=== PATIENT | male | born 1955 | race Caucasian/White ===

== ENCOUNTER 2018-05-25 06:53 | Inpatient (IN) ==
[~2018-05-25 06:53] MED LIST: Dextrose 50 % in Water (Vial) 30 ML, Sodium Bicarbonate 20 MEQ, Lidocaine 1% 5 ML, Insu... TH ONE; Dextrose 50 % in Water (Vial) 30 ML, Sodium Bicarbonate 20 MEQ, Potassium Chloride 15 M... TH ONE; Heparin 15,000 UNIT in 0.9 % Sodium Chloride 500 ML IV ONE; Insulin Human Regular 100 UNIT in 0.9 % Sodium Chloride 100 ML IV PRN; Norepinephrine 4 MG in D5% in Water 250 ML IVC PRN
[2018-05-25] MEDS ORDERED: *HR* Midazolam HCl 5 MG/5 ML VIAL IVP ONE (06:55)
[2018-05-25] MEDS ORDERED: *HR* FentaNYL (PF) 1,000 MCG/20 ML VIAL ONE (06:56)
[2018-05-25] MEDS ORDERED: *HR* Propofol 200 MG/20 ML VIAL IVP ONE (06:56)
[2018-05-25] MEDS ORDERED: *HR* Magnesium Sulfate 1 GM/2 ML VIAL ONE (06:58)
[2018-05-25] MEDS ORDERED: *HR* Rocuronium Bromide 50 MG/5 ML VIAL ONE ×2 (06:58→10:02)
[2018-05-25] MEDS ORDERED: Aspirin 81 MG TAB.CHEW PO ONE (07:02)
[2018-05-25] MEDS ORDERED: CeFAZolin Syr 2,000MG/20 ML 2,000 MG/20 ML SYRINGE IVPB ONE (07:05)
[2018-05-25] MEDS ORDERED: Albuterol 2.5 MG/3 ML NEBULIZER IH ONE (07:05)
[2018-05-25] MEDS ORDERED: Nitroglycerin 25 MG/250 ML INFUS..BTL IVC ONE (07:11)
[2018-05-25] MEDS ORDERED: Ringers Solution, Lactated 1,000 ML IVC SCH (07:15)
--- NOTE | 2018-05-25 07:26 | Anesthesia Evaluation PreOp ---
Date of Encounter: 05/25/18 Time of Encounter: 07:24 - Past History Planned Operation: CABG Cardiac History: HTN, Hyperlipidemia, Cardiac Stent (x 2), Other (CAD) Pulmonary History: SHANEL Dx (CPAP 8) AUDIT MANAGER History: Other (depression, anxiety, cervical C5-6 herniated disk) Other Medical History: Diabetes Type II Anesthesia History: No Prior Anesthetic Complications, Past Anesthesia ( BIlateral knee replacements) Alcohol Use: rarely Drug use: none Medications and Allergies Aspirin 81 mg PO DAILY 10/06/17 [History] Atorvastatin [Lipitor] 40 mg PO HS 10/06/17 [History] Dapagliflozin Propanediol [Farxiga] 5 mg PO DAILY 10/06/17 [History] Dulaglutide [Trulicity] 1.5 mg IJ WE 10/06/17 [History] Gabapentin [Neurontin] 300 mg PO BID 10/06/17 [History] Gabapentin [Neurontin] 600 mg PO HS 10/06/17 [History] Insulin ASPART [NovoLOG] 18 - 20 unit SQ TID PRN 10/06/17 [History] Losartan/Hydrochlorothiazide [Losartan-Hctz 100-12.5 mg Tab] 1 tab PO DAILY [History] Metformin HCl [Glucophage] 1,000 mg PO BID 10/06/17 [History] Metoprolol XL (24 HR) Succ [Toprol Xl] 25 mg PO DAILY 10/06/17 [History] Albuterol Sulfate [Proair Hfa] 1 puff IH DAILY PRN 05/18/18 [History] Albuterol Sulfate [Ventolin Hfa] 18 gm IH DAILY PRN 05/18/18 [History] Fluticasone Propionate Nasal [Flonase] 50 mcg NS DAILY PRN 05/18/18 [History] Insulin Degludec [Tresiba Flextouch U-200] 200 unit SQ DAILY 05/18/18 [History] raNITIdine HCl [Zantac] 150 mg PO DAILY PRN 05/18/18 [History] 3 Allergy/AdvReac Type Severity Reaction Status Date / Time No Known Allergies Allergy Verified 05/25/18 07:38 - Meds/Allergy Pre-op Review Medications Reviewed: Yes Allergies Reviewed: Yes Beta Blockers on Current Med List: Yes (metoprolol ) If Beta Blockers taken, Date/Time (Last Dose taken): midnight Anesthesia Results - Labs Laboratory Tests 06/27/18 06/27/18 06/27/18 12:58 12:58 12:58 WBC 9.7 Hgb 13.0 Hct 40.7 Plt Count 261 PT 10.9 INR 1.0 APTT Sodium 138 Potassium 4.2 Chloride 104 Carbon Dioxide 28 BUN 20 Creatinine 1.06 Est GFR (Non-Af Amer) > 60 Hemoglobin A1c 05/18/18 05/18/18 14:55 14:55 WBC Hgb Hct Plt Count PT INR APTT 35.0 Sodium Potassium Chloride Carbon Dioxide BUN Creatinine Est GFR (Non-Af Amer) Hemoglobin A1c 8.1 H - Imaging EKG: report reviewed, image reviewed Additional studies: 05/2018 LEFT HEART CATH Indications: Abnormal Test - Stress Impressions: There is severe three vessel coronary artery disease. Instent restenosis in previously stented proximal LAD. The left ventricle is normal and has normal contractility EF 60% Recommendations: Optimal medical therapy of patient's disease. Aggressive risk factor modification. Evaluate for coronary artery bypass surgery. LV Ventriculography Ejection Method: LV Gram 60% Coronary Dominance: right Lesion Findings/Interventions * Left Main Coronary Artery The LMCA is angiographically free of disease. * Left Anterior Descending There is a 99% instent restenosis in the Proximal LAD. The lesion has no thrombus present. * Circumflex There is a 30% stenosis in the Proximal Circumflex. The lesion has no thrombus present. There is a 40% stenosis in the 1st Marginal. The lesion has no thrombus present. There is a 99% stenosis in the 2nd Marginal. * Right Coronary Artery There is a 30% stenosis in the Proximal RCA- calcified There is a 90% stenosis in the Mid RCA- calcified There is a 99% stenosis in the Distal RCA. Echo 10/2017 Impressions: Overall, normal LV systolic function, EF 55%. The endocardial border was not well visualized in all windows. Not all LV segments were seen. Recommend use of Definity for future studies. Mild left ventricular diastolic dysfunction. Normal filling pressures by E/e'. Normal right ventricular structure and function. No significant valvular dysfunction. No pulmonary hypertension by TR gradient, 19 mmHg. IVC is not well visualized. Left Ventricular Wall Motion: Rest Echo Findings The mid anterior septal, mid inferior lateral, basal anterior septal and basal inferior lateral mcdonald were not visualized. All other wall segments showed normal motion. Findings: Study Quality * Technically challenging windows due to body habitus. ECG Findings * Normal sinus rhythm. Left Ventricle * LVEF 55%. * Normal LV size. * Measurements for wall thickness were not well obtained. Visually, LV wall thickness appears normal. * Mild left ventricular diastolic dysfunction. Normal filling pressures by E/e'. Right Ventricle * Normal right ventricular structure and function. Left Atrium * Left atrium is not well visualized. Right Atrium * Right atrium is not well visualized. Aortic Valve * No aortic regurgitation. * Aortic valve not well visualized. * No aortic stenosis. Mitral Valve * No mitral regurgitation. * Mitral valve not well visualized. * No mitral stenosis. Tricuspid Valve * Tricuspid valve not well visualized. * Trace tricuspid regurgitation. Pulmonic Valve * Pulmonic valve is not well visualized. * No pulmonic stenosis. * No pulmonic regurgitation. Pulmonary Artery * Pulmonary artery not well visualized. Aorta * Not well visualized. Pericardium * There is no pericardial effusion present. Interatrial Septum * Interatrial septum not well evaluated. IVC * The IVC is not well evaluated. Cervical MRI 03/2018 IMPRESSION: 1. No substantial change since 08/03/2017. 2. Posterior disc protrusions at C5-6 cause moderate spinal canal stenosis and severe left and moderate right C6 neural foraminal narrowing. 3. Mild spinal canal stenosis at C3-4 and C6-7. Anesthesia Exam Vital Signs/O2 Sat/Glucose, Most Recent Temp Pulse Resp BP Pulse Ox 97.9 F 76 18 146/85 96 05/25/18 07:28 05/25/18 07:28 05/25/18 07:28 05/25/18 07:28 05/25/18 07:28 Blood Glucose* 71 Height: 1.83 Weight: 131 kg BMI 39.3 NPO (# of Hours): > 8 hours - HEENT Pupil (Motor): Pupils equal Mallampati: II Teeth: Normal Oral Opening: Greater than 3 - AUDIT MANAGER AUDIT MANAGER Motor: Normal RUE, Normal LUE, Normal RLE, Normal LLE, Normal Face AUDIT MANAGER Sensory: Normal: LUE, RLE, LLE, Face, Deficit: RUE (thumb numbness ) - Cardiac Rhythm: Regular Murmur: Systolic - Pulmonary Breath Sounds: bilateral Clear Respiratory Effort: Symmetrical Anesthesia Assess/Plan ASA Score: 4 Modified [place] Scale for Level of Consciousness: Cooperative, oriented, and tranquil Anesthetic Plan: General Monitoring Plan: Standard Monitors, A-Line, PAC, SUSY Recovery Plan: ICU Anes Supervising Prov Stmt: discussed patients hx of neck pain and tentitive neck surgery prior to finding the CAD. Plan for glidescope intubation. Discussed bayron PAC, SUSY insertion and ICU admission
--- NOTE | 2018-05-25 07:39 | History & Physical Report ---
Date of Encounter: 05/25/18 Time of Encounter: 07:30 24 Hour HP Update - Instructions Instructions: If the History and Physical is less than 30 days old and was completed prior to A.M. admission and or procedure and has NOT been updated on calendar day of procedure please complete this update prior to performing procedure. - Update Patient reports changes in Medical Condition: No Changes in examination, assessment, or condition: No Changes in Medication: No Preop tests/diagnostics Reviewed: Yes Surgery Remains Indicated: Yes Consent for Planned Operative Procedure(s) Verified: Yes - Pre-Operative Checklist Preoperative Checklist Indicated: No Prophylactic Antibiotic Ordered: Yes Home Medications Include Beta Zoey: Yes Beta Zoey Taken Today (Day of Surgery): Yes Beta Zoey Taken Yesterday (Day Prior to Surgery): Yes Is VTE Prophylaxis Indicated?: NO
[2018-05-25] MEDS ORDERED: Lidocaine 2% Syringe 100 MG/5 ML ONE (07:58)
[2018-05-25] MEDS: Chlorhexidine Rinse 15 ML MOUTHWASH MM SCH ×2 (08:04→20:08)
[2018-05-25 08:28] LABS: ABG Base Excess -1 mEq/L (-2 to 3); ABG Chloride 107 mEq/L (98-107); ABG Glucose 69 mg/dL (60-95); ABG HCO3 27 mEq/L (21-27); ABG Ionized Calcium 1.15 mmol/L (1.15-1.35); ABG Oxygen Saturation 84 % (95-98); ABG PCO2 58 mmHg (35-45); ABG PH 7.28 pH Units (7.32-7.45); ABG PO2 56 mmHg (85-104); ABG TCO2 29 mEq/L (20-26)
[2018-05-25] MEDS ORDERED: Dexamethasone 4 MG/ML VIAL ONE (08:59)
[2018-05-25] MEDS ORDERED: *HR* Magnesium Sulfate 2 GM/50 ML PIGGYBACK IVPB ONE (09:05)
[2018-05-25] MEDS ORDERED: Albumin Human 25% 25 GM/100 ML IV.SOLN IV ONE (09:05)
[2018-05-25] MEDS ORDERED: Lidocaine 2% Syringe 100 MG/5 ML IV ONE (09:05)
[2018-05-25] MEDS ORDERED: *HR* Phenylephrine 10 MG/ML VIAL IVC ONE (09:05)
[2018-05-25] MEDS ORDERED: Tranexamic Acid 1,000 MG/10 ML VIAL IVPB ONE (09:05)
[2018-05-25] MEDS ORDERED: Mannitol 25% vial 12.5 GM/50 ML VIAL IVP ONE (09:05)
[2018-05-25] MEDS ORDERED: *HR* Heparin 10,000 UNIT/10 ML VIAL IV ONE (09:05)
[2018-05-25] MEDS ORDERED: Tranexamic Acid 1,000 MG/10 ML VIAL ONE (09:54)
[2018-05-25] MEDS ORDERED: *HR* Dextrose 50 % in Water (Syg) 50 ML SYRINGE ONE (09:57)
[2018-05-25 09:58] LABS: ABG Base Excess 0 mEq/L (-2 to 3); ABG Chloride 107 mEq/L (98-107); ABG Glucose 66 mg/dL (60-95); ABG HCO3 25 mEq/L (21-27); ABG Ionized Calcium 1.15 mmol/L (1.15-1.35); ABG Oxygen Saturation 98 % (95-98); ABG PCO2 45 mmHg (35-45); ABG PH 7.36 pH Units (7.32-7.45); ABG PO2 114 mmHg (85-104); ABG TCO2 27 mEq/L (20-26)
[2018-05-25] MEDS ORDERED: *HR* FentaNYL (PF) 250 MCG/5 ML VIAL ONE (10:11)
[2018-05-25 10:54] LABS: ABG Base Excess 1 mEq/L (-2 to 3); ABG Chloride 103 mEq/L (98-107); ABG Glucose 120 mg/dL (60-95); ABG HCO3 26 mEq/L (21-27); ABG Ionized Calcium 0.98 mmol/L (1.15-1.35); ABG PCO2 39 mmHg (35-45); ABG PH 7.43 pH Units (7.32-7.45); ABG PO2 > 630 mmHg (85-104); ABG TCO2 27 mEq/L (20-26)
[2018-05-25 11:09] LABS: VBG Base Excess 0 mEq/L; VBG Chloride 104 mEq/L (98-107); VBG Glucose 89 mg/dl (65-95); VBG HCO3 26 mEq/L (21-27); VBG Oxygen Saturation 77 %; VBG PCO2 45 mmHg (41-51); VBG PH 7.37 pH Units (7.32-7.42); VBG PO2 43 mmHg (25-50); VBG Total CO2 27 mEq/L
[2018-05-25 11:19] LABS: ABG Base Excess 2 mEq/L (-2 to 3); ABG Chloride 104 mEq/L (98-107); ABG Glucose 82 mg/dL (60-95); ABG HCO3 26 mEq/L (21-27); ABG Ionized Calcium 1.02 mmol/L (1.15-1.35); ABG Oxygen Saturation 100 % (95-98); ABG PCO2 41 mmHg (35-45); ABG PH 7.42 pH Units (7.32-7.45); ABG PO2 489 mmHg (85-104); ABG TCO2 28 mEq/L (20-26)
--- NOTE | 2018-05-25 11:21 | Anesthesia Procedures ---
Date of Encounter: 05/25/18 Time of Encounter: 08:30 Procedures: Anesthesia - Arterial Line Consent obtained: written consent Time out performed: Yes Sedation: Versed (mg): 3 Sedation: Fentanyl (mcg): 100 Supplemental Oxygen via Nasal Cannula (L/min): 6 Local Anesthetic: Lidocaine 1% Amount of Anesthetic used (mls): 0.2 Size (Gauge): 20 Length (inches): 1 3/4 Technique Used: sterile prep, direct puncture technique Post-Procedure: dry sterile dressing placed Patient tolerated procedure: well, no complications Complications: none Site: Radial L - Central Line Placement Right IJ Consent obtained: written consent Time out performed: Yes Patient placed on monitor/pulse ox: Yes MD prep: mask, gown, gloves Central line prep: Chlorhexidine scrub Ultrasound used for placement: Yes Technique: Seldinger Lumen Inserted: single Size / Length: 9 Fr / 10 cm Post procedure: sutured in place, good blood return, all ports aspirated, flushed, capped, sterile dressing applied Patient tolerated procedure: well, no complications Complications: none Vitals: see anesthesia chart Comments: pressure waveform analysis used for PAC insertion. Secured at 50 cm
[2018-05-25] MEDS ORDERED: Protamine Sulfate 250 MG/25 ML VIAL IVP ONE (11:26)
[2018-05-25 11:56] LABS: ABG Base Excess -1 mEq/L (-2 to 3); ABG Chloride 105 mEq/L (98-107); ABG Glucose 112 mg/dL (60-95); ABG HCO3 25 mEq/L (21-27); ABG Ionized Calcium 1.08 mmol/L (1.15-1.35); ABG Oxygen Saturation 95 % (95-98); ABG PCO2 42 mmHg (35-45); ABG PH 7.38 pH Units (7.32-7.45); ABG PO2 77 mmHg (85-104); ABG TCO2 26 mEq/L (20-26)
[2018-05-25] MEDS ORDERED: Albumin Human 5% 37.5 GM/750 ML VIAL ONE (12:14)
[2018-05-25] MEDS ORDERED: Ondansetron 4 MG/2 ML VIAL ONE (12:14)
--- NOTE | 2018-05-25 12:31 | Operative Note ---
Date of procedure: 05/25/18 Pre-op diagnosis: CAD Post-op diagnosis: same Procedure: 1. CABG 2 (GATES to LAD, SVG to OM2) 2. Endoscopic vein harvesting, greater saphenous vein from right lower extremity Implants: None. Complications: None. Anesthesia: GETA Surgeon: Fiona Ahuja Was there an assistant professor of english present: Yes Telecine Operator: Vickey Slade Estimated blood loss (cc): 500 Specimen: None. Condition: stable Disposition: ICU Procedure in Detail: INDICATIONS FOR OPERATION: The patient is a 62-year-old type II diabetic, hypertensive, moderately obese man with known CAD and hypercholesterolemia. He underwent cardiac catheterization with PCI and stent placement approximate 5 years ago. He has done well since that time; however, occasionally has noticed substernal chest pressure. He developed a cervical radiculopathy and was recommended for a C5/ C6 laminectomy. Given his cardiac history and his cardiac risk profile he was recommended for cardiac clearance prior to undergoing his laminectomy. The patient underwent a nuclear stress test which revealed an LVEF 65% with a medium-sized, moderate intensity stress perfusion defect involving the basal to apicoinferior wall. Subsequent cardiac catheterization revealed severe 3 vessel CAD and an LVEF 65%. In particular, patient had a 99% in-stent restenosis in the proximal LAD, a 99% proximal OM2 lesion, a 90% mid RCA lesion (calcified vessel), and a 99% distal RCA lesion (calcified vessel). He was recommended for CABG. FINDINGS AT OPERATION: The aorta was of normal caliber without calcification. The LAD and LCx both measured approximately 2-3 mm in diameter and had mild distal disease. The RCA was a smaller, heavily calcified vessel with no adequate distal runoff. This vessel could not be bypassed. The greater saphenous vein was harvested endoscopically from the right lower extremity from the knee to the groin and was of good quality. The total bypass time was 48 minutes, cross-clamp time 30 minutes, intentional hypothermia of 34.7 degrees centigrade. DESCRIPTION OF OPERATION: After obtaining informed operative consent from the patient, he was taken to the operative tumor satisfactory general endotracheal anesthetic was induced. Appropriate monitor lines were placed, and the patient's chest, abdomen, and lower extremities were prepped and draped in a sterile fashion. The greater saphenous vein was harvested endoscopically from the right lower extremity from the knee to the groin. Vein was removed, distended, and found to be of good quality. The simultaneous tissue and skin edges were reapproximated running Vicryl sutures. Simultaneously, a standard median sternotomy incision was made and the sternum divided. The GATES was taken down from its bed and side branches divided between hemoclips. The sternum was and the pericardium was opened and reflected laterally. The patient was prepared for cannulation by placing pursestring sutures the distal ascending aorta, mid-ascending aorta, and right atrial appendage. The patient was heparinized and when the ACT was greater than 200 seconds, the distal ascending aorta was cannulated followed by placement of a dual stage venous cannula through the right atrial appendage and into the inferior vena cava. A stab-in antegrade metabolic and is placed in the mid-ascending aorta. The patient was placed on bypass and the temperature allowed to drift to 34.7 degrees centigrade. The distal targets were identified and the aorta was crossclamped. The patient received 700 mL of cold antegrade crystalloid cardioplegia through the aortic root. The patient's heart obtained rapid diastolic arrest. The RCA was a small, heavily calcified vessel. After arrest was obtained, the artery was examined further and found to have no bypassable targets. The OM 2 branch was then opened be blade and the vein anastomosed in end-to-side fashion using running 7-0 Prolene suture. The anastomosis found to be hemostatic. The LAD was opened with a Winston blade and the GATSE was anastomosed in end-to-side fashion to the LAD using a running 7-0 Prolene suture. The anastomosis was found to be hemostatic and the mammary pedicle was tacked to the epicardium using interrupted 5-0 silk suture. Rewarming was begun during this anastomosis. Aortic cross-clamp was released and the heart distended. The vein was measured and cut appropriate length. A partial occluding clamp was placed across the mid ascending aorta and the antegrade cardioplegia cannula was removed. The aortotomy site was enlarged with 4 mm punch. The vein was anastomosed in end-to -side fashion to the aorta using a running 5-0 Prolene suture. The vein graft was occluded with bulldog clamps and de-aired the 25-gauge needle prior to removing the partial occluding clamp. The proximal and distal anastomoses were found to be hemostatic. Proximal anastomosis was marked with radiopaque loop. Two right ventricular temporary pacing lesion placed, and 3 chest suture placed, 2 in the mediastinum and one into the left pleural space. During rewarming the patient's heart rhythm degenerated to ventricular fibrillation and required a single 10 J direct- current shock and heart regained normal sinus rhythm.His systemic temperature reached 36 degrees centigrade, he was ventilated and received volume. He was weaned from bypass required no inotropic support. Protamine was administered and the aortic and venous cannulae were removed. The pursestring sutures were secured. The venous cannulation site was reinforced with a running 4-0 Prolene suture. The pericardium was loosely approximated over the aorta and pulmonary artery in the lower portion of the right ventricle. The midportion above the right ventricle remained exposed due to excessive tension from the pericardium. The sternum was reapproximated using doubled wires. The pectoralis major fascia, rectus abdominis fascia, simultaneous tissue, and skin edges were reapproximated running Vicryl sutures. A negative pressure sterile dressing was applied to the sternotomy incision. The patient was transferred to the ICU in satisfactory postoperative condition. Were no intraoperative complications, and the instrument, needle, and sponge count were corrected and of operation. - Open Heart Detail LUCINDA (Internal Mammary Artery) Usage: Yes Cardiopulmonary Bypass Time (mins): 48 Aortic Cross Clamp Time (mins): 30 Intentional Hypothermia Temperature (C.): 34.7
[2018-05-25 12:39] LABS: ABG Base Excess -1 mEq/L (-2 to 3); ABG HCO3 25 mEq/L (21-27); ABG Oxygen Saturation 95 % (95-98); ABG PCO2 46 mmHg (35-45); ABG PH 7.34 pH Units (7.32-7.45); ABG PO2 80 mmHg (85-104); ABG TCO2 26 mEq/L (20-26); Blood Gas Modality ASSIST CONTROL; Blood Gas Respiration Rate 10; Blood Gas VT 700 cc
[2018-05-25] MEDS ORDERED: Acetaminophen 325 MG TABLET PO PRN (12:46)
[2018-05-25] MEDS ORDERED: Calcium Chloride 1,000 MG in 0.9 % Sodium Chloride 100 ML IVPB PRN (12:46)
[2018-05-25] MEDS ORDERED: Ondansetron 4 MG/2 ML VIAL IVP PRN (12:46)
[2018-05-25] MEDS ORDERED: Acetaminophen 650 MG RECTAL SUPP RC PRN (12:46)
[2018-05-25] MEDS ORDERED: Potassium Chloride 40 MEQ/200 ML BAG IVPB PRN (12:46)
[2018-05-25] MEDS ORDERED: *HR* Dextrose 50 % in Water (Syg) 50 ML SYRINGE IVP PRN (12:46)
[2018-05-25] MEDS ORDERED: Insulin Regular, Human 100 UNIT/ML IV PRN (12:46)
[2018-05-25] MEDS ORDERED: Naloxone 0.4 MG/ML INJ IVP PRN (12:46)
[2018-05-25] MEDS ORDERED: Insulin Human Regular 100 UNIT in 0.9 % Sodium Chloride 100 ML IVC SCH (13:00)
[2018-05-25] MEDS ORDERED: Norepinephrine 4 MG in D5% in Water 250 ML IVC SCH (13:00)
[2018-05-25 13:07] LABS: INR 1.2; Prothrombin Time 13.4 Seconds (9.4-12.1)
[2018-05-25 13:09] LABS: Basophils # 0.1 K/mcL (0.0-0.2); Basophils % 0.3 %; Eosinophils # 0.2 K/mcL (0.0-0.6); Eosinophils % 0.8 %; Hematocrit 34.1 % (37.5-50.1); Hemoglobin 11.1 g/dL (12.9-16.9); Immature Granulocytes % 0.9 % (0-4); Lymphocytes # 0.9 K/mcL (0.6-4.6); Lymphocytes % 4.3 %; Mean Corpuscular HGB Conc 32.6 g/dL (31.6-35.5); Mean Corpuscular Hemoglobin 27.2 pg (28.0-33.3); Mean Corpuscular Volume 83.6 fL (83.0-100.0); Mean Platelet Volume 10.7 fL (9.4-12.4); Monocytes # 1.1 K/mcL (0.0-1.3); Monocytes % 5.2 %; Neutrophils # 18.3 K/mcL (1.6-8.9); Platelet Count 170 K/mcL (140-400); Red Blood Count 4.08 M/mcL (4.19-5.50); Red Cell Distribution Width 14.6 % (11.5-14.5); Segmented Neutrophils % 88.5 %
[2018-05-25 13:10] LABS: Activated Partial Thrombo Time 29.3 Seconds (26.0-36.0)
[2018-05-25 13:16] LABS: BUN/Creatinine Ratio 18 (6-26); Blood Urea Nitrogen 18 mg/dL (8-23); Calcium 7.1 mg/dL (8.6-10.3); Carbon Dioxide 25 mEq/L (23-29); Chloride 110 mEq/L (98-107); Glucose 117 mg/dL (70-105); Magnesium 2.8 mg/dL (1.6-2.6); Osmolality,Calculated 289 (280-300); Potassium 4.2 mEq/L (3.5-5.1); Sodium 138 mEq/L (136-145); eGFR For African Americans > 60 (> 60); eGFR For Non-African Americans > 60 (> 60)
[2018-05-25] MEDS: niCARdipine 40 MG/200 ML MLS IVC SCH ×3 (13:17→23:03)
[2018-05-25] MEDS: Nitroglycerin 25 MG/250 ML INFUS..BTL IVC SCH ×3 (13:18→23:02)
[2018-05-25] MEDS: 0.9 % Sodium Chloride w KCl 20 MEQ/1,000 ML MLS IVC SCH (13:23)
[2018-05-25] MEDS: Pantoprazole 40 MG VIAL IVP SCH (13:23)
--- NOTE | 2018-05-25 13:32 | Anesthesia Evaluation Post Op ---
Date of Encounter: 05/25/18 Time of Encounter: 13:30 - Vital Signs Vital Signs: BP 123/54 HR 74 O2 sat 100 RR 14 - Lungs Lungs: Clear Ascult./Percussion - Airway Airway: Intubated - Cardiovascular Regular Rate - Mental Status Mental Status: Sedated - Pain Pain Scale used: Virgilio (Faces) - Nausea Vomiting Nausea Vomiting: Unable to assess - Hydration Hydration: NPO Anes Supervising Prov Stmt: Patient remains in ICU in stable condition.
[2018-05-25] MEDS: *HR* FentaNYL (PF) 100 MCG/2 ML VIAL IVP PRN ×4 (14:16→20:40)
[2018-05-25 14:42] LABS: VBG HCO3 25 mEq/L (21-27); VBG PCO2 51 mmHg (41-51); VBG PH 7.29 pH Units (7.32-7.42); VBG PO2 40 mmHg (25-50)
[2018-05-25 14:48] LABS: ABG Base Excess -2 mEq/L (-2 to 3); ABG HCO3 24 mEq/L (21-27); ABG Oxygen Saturation 97 % (95-98); ABG PCO2 44 mmHg (35-45); ABG PH 7.34 pH Units (7.32-7.45); ABG PO2 94 mmHg (85-104); ABG TCO2 25 mEq/L (20-26)
[2018-05-25 15:26] LABS: Estimated Average Glucose 180 mg/dl; Hemoglobin A1C 7.9 %
[2018-05-25 15:27] LABS: ABG Base Excess -2 mEq/L (-2 to 3); ABG HCO3 24 mEq/L (21-27); ABG Oxygen Saturation 90 % (95-98); ABG PCO2 46 mmHg (35-45); ABG PH 7.33 pH Units (7.32-7.45); ABG PO2 64 mmHg (85-104); ABG TCO2 26 mEq/L (20-26)
[2018-05-25] MEDS: Furosemide 20 MG/2 ML VIAL IVP SCH (15:54)
[2018-05-25] MEDS: CeFAZolin Syr 3,000MG/30 ML 3,000 MG/30 ML SYRINGE IVPB SCH ×2 (15:54→23:01)
[2018-05-25] MEDS: *HR* OxyCODONE/APAP 5/325 TABLET PO PRN ×2 (16:36→20:17)
[2018-05-25] MEDS: Ketorolac 15 MG/ML VIAL IVP SCH ×2 (17:14→23:00)
[2018-05-25] MEDS: Metoclopramide 10 MG/2 ML VIAL IVP SCH ×2 (17:14→23:01)
[2018-05-25] MEDS ORDERED: Chlorhexidine Rinse 15 ML MOUTHWASH MM SCH (21:00)
[2018-05-26] MEDS: *HR* OxyCODONE/APAP 5/325 TABLET PO PRN ×5 (03:03→21:57)
[2018-05-26 03:17] LABS: Basophils % 0.1 %; Hematocrit 31.6 % (37.5-50.1); Hemoglobin 10.3 g/dL (12.9-16.9); Immature Granulocytes % 1.2 % (0-4); Immature Platelets 4.7 % (1.1-6.1); Lymphocytes # 0.9 K/mcL (0.6-4.6); Lymphocytes % 5.5 %; Mean Corpuscular HGB Conc 32.6 g/dL (31.6-35.5); Mean Corpuscular Volume 82.9 fL (83.0-100.0); Mean Platelet Volume 10.6 fL (9.4-12.4); Monocytes # 1.8 K/mcL (0.0-1.3); Monocytes % 11.2 %; Neutrophils # 13.5 K/mcL (1.6-8.9); Platelet Count 177 K/mcL (140-400); Red Blood Count 3.81 M/mcL (4.19-5.50); Red Cell Distribution Width 14.8 % (11.5-14.5)
[2018-05-26 03:28] LABS: INR 1.1; Prothrombin Time 12.5 Seconds (9.4-12.1)
[2018-05-26 03:30] LABS: Activated Partial Thrombo Time 27.1 Seconds (26.0-36.0)
[2018-05-26 03:34] LABS: BUN/Creatinine Ratio 19 (6-26); Blood Urea Nitrogen 24 mg/dL (8-23); Calcium 7.9 mg/dL (8.6-10.3); Carbon Dioxide 20 mEq/L (23-29); Chloride 107 mEq/L (98-107); Glucose 165 mg/dL (70-105); Magnesium 2.3 mg/dL (1.6-2.6); Osmolality,Calculated 292 (280-300); Potassium 4.4 mEq/L (3.5-5.1); Sodium 137 mEq/L (136-145); eGFR For African Americans > 60 (> 60); eGFR For Non-African Americans 57 (> 60)
[2018-05-26 04:21] LABS: ABG Base Excess -3 mEq/L (-2 to 3); ABG HCO3 22 mEq/L (21-27); ABG Oxygen Saturation 92 % (95-98); ABG PCO2 38 mmHg (35-45); ABG PH 7.37 pH Units (7.32-7.45); ABG PO2 65 mmHg (85-104); ABG TCO2 23 mEq/L (20-26)
[2018-05-26] MEDS: *HR* FentaNYL (PF) 100 MCG/2 ML VIAL IVP PRN ×8 (04:57→21:35)
[2018-05-26] MEDS: Ketorolac 15 MG/ML VIAL IVP SCH ×3 (05:01→16:41)
[2018-05-26] MEDS: Metoclopramide 10 MG/2 ML VIAL IVP SCH ×3 (05:01→16:41)
--- NOTE | 2018-05-26 07:07 | Cardiothoracic Progress Note ---
Date of Encounter: 05/26/18 Time of Encounter: 07:05 - Assessment and plan (1) Coronary artery disease Current Visit: No Status: Acute The patient is recovering well from his CABG2. He is currently extubated and breathing comfortably. The arterial line, Ervin catheter, and Blackstock-Eveline catheter be removed. The patient will be transferred to the stepdown unit when a bed is available. The assessment and plan as outlined above was discussed with the patient and/or family members who expressed understanding and agreement. All questions were answered. Qualifiers: Coronary Disease-Associated Artery/Lesion type: [place] artery [place] vs. transplanted heart: [place] heart Associated angina: without angina Qualified Code(s): I25.10 - Atherosclerotic heart disease of [place] coronary artery without angina pectoris - Subjective Procedure(s) Performed: POD#1 S/P CABG2 Interval history: The patient remained hemodynamic stable overnight. He is extubated and breathing comfortably. He has been able to sit in a chair without difficulty. Vital Signs, Last 4 Hours Temp Pulse Resp BP Pulse Ox 05/26/18 06:00 98.9 F 85 15 110/48 94 05/26/18 05:01 84 16 112/45 92 05/26/18 04:16 15 94 05/26/18 04:00 99.2 F 80 15 110/44 92 Oxgyen Flow Rate Oxygen Flow Rate (LPM) 1 Clinical Data, last 8 Hours Output, Chest Tube Drainage 10 Amount [#2] Output, Chest Tube Drainage 10 Amount [#2] Output, Chest Tube Drainage 5 Amount [#2] Output, Chest Tube Drainage 30 Amount [Mediastinal #1] Output, Chest Tube Drainage 30 Amount [Mediastinal #1] Output, Chest Tube Drainage 20 Amount [Mediastinal #1] Output, Chest Tube Drainage 5 Amount [Mediastinal #1] Output, Chest Tube Drainage 5 Amount [Mediastinal #1] Output, Chest Tube Drainage 20 Amount [Mediastinal #1] Weight 05/24/18 05/25/18 05/26/18 23:59 23:59 23:59 Weight 131.542 kg - Physical Examination General: Conversant, No Apparent Distress Neck: No JVD, Normal carotid pulses Cardiac: Reg Rate and Rhythm, Normal S1 and S2, No Murmur Incision: No signs of infection, Dry/intact dressing Sternum: Stable Chest tubes: Minimal drainage, Other (No air leak) Lungs: Normal Breath Sounds, No Wheeze, Rales, Rhonchi Neuro: Alert and responsive, No focal deficits noted Vascular: Normal capillary refill Extremities: No Clubbing, No Cyanosis, No Edema - Labs 05/26/18 03:00 05/26/18 03:00 Lab Results, Last 24 hours 05/25/18 05/25/18 05/25/18 12:40 12:40 12:40 WBC 20.7 H Hgb 11.1 L Hct 34.1 L Plt Count 170 INR 1.2 APTT 29.3 Sodium 138 Potassium 4.2 Chloride 110 H Carbon Dioxide 25 BUN 18 Creatinine 0.98 Glucose 117 H Calcium 7.1 L Magnesium 2.8 H 05/26/18 05/26/18 05/26/18 03:00 03:00 03:00 WBC 16.4 H Hgb 10.3 L Hct 31.6 L Plt Count 177 INR 1.1 APTT 27.1 Sodium 137 Potassium 4.4 Chloride 107 Carbon Dioxide 20 L BUN 24 H Creatinine 1.28 Glucose 165 H Calcium 7.9 L Magnesium 2.3 - Imaging Chest Xray: image reviewed (No pneumothorax. Minimal atelectasis/infiltrates) - VTE Documentation of Mechanical Device: Graduated compression elastic hosiery Consult Discharge Plan - Plan Referrals: Garret Vitale MD [Primary Care Provider] -
[2018-05-26] MEDS ORDERED: *HR* Heparin 5,000 UNIT/ML VIAL SQ SCH (07:30)
[2018-05-26] MEDS: Furosemide 20 MG/2 ML VIAL IVP SCH ×2 (07:34→16:39)
[2018-05-26] MEDS: Pantoprazole 40 MG VIAL IVP SCH (08:10)
[2018-05-26] MEDS: Nitroglycerin 25 MG/250 ML INFUS..BTL IVC SCH (08:17)
[2018-05-26] MEDS ORDERED: Aspirin Enteric Coated 81 MG Tablet PO SCH (09:00)
[2018-05-26] MEDS: 0.9 % Sodium Chloride w KCl 20 MEQ/1,000 ML MLS IVC SCH (09:38)
[2018-05-26] MEDS ORDERED: Fluticasone Propionate Nasal 50 MCG/SPRAY BOTTLE NS PRN (12:53)
[2018-05-26] MEDS ORDERED: D5% in Water 1,000 ML IVC PRN (12:53)
[2018-05-26] MEDS ORDERED: Insulin Human Regular 100 UNIT in 0.9 % Sodium Chloride 100 ML IVC SCH (12:53)
[2018-05-26] MEDS ORDERED: Acetaminophen 325 MG TABLET PO PRN (12:53)
[2018-05-26] MEDS ORDERED: Naloxone 0.4 MG/ML INJ IVP PRN (12:53)
[2018-05-26] MEDS ORDERED: Ondansetron 4 MG/2 ML VIAL IVP PRN (12:53)
[2018-05-26] MEDS ORDERED: Dextrose Gel 15 GM/37.5 ML TUBE PO PRN ×2 (12:53)
[2018-05-26] MEDS ORDERED: *HR* Dextrose 50 % in Water (Syg) 50 ML SYRINGE IVP PRN (12:53)
[2018-05-26] MEDS ORDERED: Insulin Regular, Human 100 UNIT/ML IV PRN (12:53)
[2018-05-26] MEDS: Insulin LISPRO 300 UNITS/3 ML VIAL SQ SCH ×3 (13:52→21:54)
[2018-05-26] MEDS: Losartan/HCTZ 50-12.5 TABLET PO SCH (14:09)
[2018-05-26] MEDS: Gabapentin 300 MG CAPSULE PO SCH ×2 (16:40→21:55)
[2018-05-26] MEDS: *HR* Heparin 5,000 UNIT/ML VIAL SQ SCH (16:40)
[2018-05-26] MEDS ORDERED: Chlorhexidine Rinse 15 ML MOUTHWASH PO SCH (21:00)
[2018-05-26] MEDS: *HR* Metformin 500 MG TABLET PO SCH (21:56)
[2018-05-27] MEDS: Ketorolac 15 MG/ML VIAL IVP SCH ×4 (01:02→17:59)
[2018-05-27] MEDS: Metoclopramide 10 MG/2 ML VIAL IVP SCH ×4 (01:03→17:59)
[2018-05-27] MEDS: *HR* FentaNYL (PF) 100 MCG/2 ML VIAL IVP PRN ×3 (01:04→16:07)
[2018-05-27] MEDS: *HR* OxyCODONE/APAP 5/325 TABLET PO PRN (02:14)
[2018-05-27 04:19] LABS: Basophils % 0.3 %; Eosinophils % 0.2 %; Hematocrit 26.2 % (37.5-50.1); Immature Granulocytes % 0.5 % (0-4); Lymphocytes # 1.3 K/mcL (0.6-4.6); Lymphocytes % 8.7 %; Mean Corpuscular HGB Conc 32.8 g/dL (31.6-35.5); Mean Corpuscular Hemoglobin 27.8 pg (28.0-33.3); Mean Corpuscular Volume 84.8 fL (83.0-100.0); Mean Platelet Volume 11.2 fL (9.4-12.4); Monocytes # 1.9 K/mcL (0.0-1.3); Monocytes % 12.9 %; Neutrophils # 11.3 K/mcL (1.6-8.9); Platelet Count 146 K/mcL (140-400); Red Blood Count 3.09 M/mcL (4.19-5.50); Segmented Neutrophils % 77.4 %
[2018-05-27 04:20] LABS: Hemoglobin 8.6 g/dL (12.9-16.9)
[2018-05-27 04:38] LABS: Calcium 7.5 mg/dL (8.6-10.3); Potassium 4.1 mEq/L (3.5-5.1)
--- NOTE | 2018-05-27 06:40 | Electrocardiograph Report ---
[place] [id number] Test Date: 2018-05-25 Pat Name: Caleb Kraft Department: 109 Room: 04 Gender: M Social Worker School: [employer] : 1955 Requested By: Ismael Ahuja Order Number: [id number] Reading MD: Osmel Yoder Measurements Intervals [place] Rate: 68 P: 48 NE: 143 QRS: 10 QRSD: 98 T: 48 QT: 400 QTc: 418 Interpretive Statements SINUS RHYTHM Electronically Signed On 05-27-2018 6:39:37 EDT by Osmel Yoder
[2018-05-27] MEDS: Furosemide 20 MG/2 ML VIAL IVP SCH (07:51)
[2018-05-27] MEDS: Aspirin Enteric Coated 81 MG Tablet PO SCH (07:51)
[2018-05-27] MEDS: Pantoprazole 40 MG VIAL IVP SCH (07:51)
[2018-05-27] MEDS: *HR* Metformin 500 MG TABLET PO SCH ×2 (07:51→20:53)
[2018-05-27] MEDS: *HR* Heparin 5,000 UNIT/ML VIAL SQ SCH ×2 (07:52→17:59)
[2018-05-27] MEDS: Insulin LISPRO 300 UNITS/3 ML VIAL SQ SCH ×4 (07:53→20:54)
--- NOTE | 2018-05-27 08:41 | Cardiothoracic Progress Note ---
Date of Encounter: 05/27/18 Time of Encounter: 08:40 - Assessment and plan (1) Coronary artery disease Current Visit: No Status: Acute The patient is recovering well from his CABG2. He is currently extubated and breathing comfortably. The chest tubes were removed. The patient will begin ambulating in the hallways today. The assessment and plan as outlined above was discussed with the patient and/or family members who expressed understanding and agreement. All questions were answered. Qualifiers: Coronary Disease-Associated Artery/Lesion type: [place] artery [place] vs. transplanted heart: [place] heart Associated angina: without angina Qualified Code(s): I25.10 - Atherosclerotic heart disease of [place] coronary artery without angina pectoris - Subjective Procedure(s) Performed: POD#2 S/P CABG2 Interval history: The patient remained hemodynamic stable overnight. He is extubated and breathing comfortably. He has been able to sit in a chair without difficulty. Vital Signs, Last 4 Hours Temp Pulse Resp BP Pulse Ox 05/27/18 07:36 18 96 05/27/18 07:15 98.5 F 100 18 98/45 97 05/27/18 05:00 90 Oxgyen Flow Rate Oxygen Flow Rate (LPM) 2 Weight 05/25/18 05/26/18 05/27/18 23:59 23:59 23:59 Weight 131.542 kg 130.7 kg - Physical Examination General: Conversant, No Apparent Distress Neck: No JVD, Normal carotid pulses Cardiac: Reg Rate and Rhythm, Normal S1 and S2, No Murmur Incision: No signs of infection, Dry/intact dressing Sternum: Stable Chest tubes: Minimal drainage, Other (No air leak) Pacing Wires: In place Lungs: Normal Breath Sounds, No Wheeze, Rales, Rhonchi Neuro: Alert and responsive, No focal deficits noted Vascular: Normal capillary refill Extremities: No Clubbing, No Cyanosis, No Edema - Labs 05/27/18 03:58 05/27/18 03:58 Lab Results, Last 24 hours 05/27/18 05/27/18 05/27/18 03:58 03:58 03:58 WBC 14.5 H Hgb 8.6 L D Hct 26.2 L Plt Count 146 Sodium 135 L Potassium 4.1 Chloride 104 Carbon Dioxide 24 BUN 31 H Creatinine 1.51 H Glucose 198 H Calcium 7.5 L Magnesium 2.3 - VTE Documentation of Mechanical Device: Graduated compression elastic hosiery Consult Discharge Plan - Plan Referrals: Terrence Courtney DO [Partnered Physician] - 06/18/18 2:45 pm Fiona Ahuja MD [Partnered Physician] - 06/17/18 1:30 pm Garret Vitale MD [Primary Care Provider] - 06/02/18 1:00 pm
[2018-05-27] MEDS: Losartan/HCTZ 50-12.5 TABLET PO SCH (08:47)
[2018-05-27] MEDS: Gabapentin 300 MG CAPSULE PO SCH ×3 (11:46→20:53)
[2018-05-28] MEDS: Ketorolac 15 MG/ML VIAL IVP SCH ×4 (00:34→16:59)
[2018-05-28] MEDS: Metoclopramide 10 MG/2 ML VIAL IVP SCH ×4 (00:34→16:59)
[2018-05-28] MEDS: *HR* Heparin 5,000 UNIT/ML VIAL SQ SCH ×2 (05:35→16:59)
[2018-05-28 05:57] LABS: Basophils % 0.2 %; Eosinophils # 0.2 K/mcL (0.0-0.6); Eosinophils % 1.5 %; Hematocrit 23.8 % (37.5-50.1); Hemoglobin 7.8 g/dL (12.9-16.9); Immature Granulocytes % 0.5 % (0-4); Lymphocytes # 1.5 K/mcL (0.6-4.6); Lymphocytes % 14.5 %; Mean Corpuscular HGB Conc 32.8 g/dL (31.6-35.5); Mean Corpuscular Hemoglobin 27.5 pg (28.0-33.3); Mean Corpuscular Volume 83.8 fL (83.0-100.0); Mean Platelet Volume 11.1 fL (9.4-12.4); Monocytes # 1.1 K/mcL (0.0-1.3); Monocytes % 10.2 %; Neutrophils # 7.6 K/mcL (1.6-8.9); Platelet Count 139 K/mcL (140-400); Red Blood Count 2.84 M/mcL (4.19-5.50); Red Cell Distribution Width 14.9 % (11.5-14.5); Segmented Neutrophils % 73.1 %
[2018-05-28 06:14] LABS: BUN/Creatinine Ratio 30 (6-26); Blood Urea Nitrogen 32 mg/dL (8-23); Calcium 7.8 mg/dL (8.6-10.3); Carbon Dioxide 26 mEq/L (23-29); Chloride 105 mEq/L (98-107); Glucose 175 mg/dL (70-105); Osmolality,Calculated 293 (280-300); Potassium 3.9 mEq/L (3.5-5.1); Sodium 136 mEq/L (136-145); eGFR For African Americans > 60 (> 60); eGFR For Non-African Americans > 60 (> 60)
--- NOTE | 2018-05-28 07:39 | Cardiothoracic Progress Note ---
Date of Encounter: 05/28/18 Time of Encounter: 07:37 - Assessment and plan (1) Coronary artery disease Current Visit: No Status: Acute The patient is recovering well from his CABG2. The beta rod dosage will be decreased because of low blood pressure. The patient will begin ambulating in the hallways later today. The assessment and plan as outlined above was discussed with the patient and/or family members who expressed understanding and agreement. All questions were answered. Qualifiers: Coronary Disease-Associated Artery/Lesion type: [place] artery [place] vs. transplanted heart: [place] heart Associated angina: without angina Qualified Code(s): I25.10 - Atherosclerotic heart disease of [place] coronary artery without angina pectoris - Subjective Procedure(s) Performed: POD#3 S/P CABG2 Interval history: The patient remained hemodynamic stable overnight. He has been able to sit in a chair without difficulty. He has no complaints. Vital Signs, Last 4 Hours Temp Pulse Resp BP Pulse Ox 05/28/18 04:36 16 95 05/28/18 04:00 89 05/28/18 03:49 98.2 F 82 19 83/41 100 Oxgyen Flow Rate Oxygen Flow Rate (LPM) 0 Weight 05/26/18 05/27/18 05/28/18 23:59 23:59 23:59 Weight 130.7 kg 130.9 kg - Physical Examination General: Conversant, No Apparent Distress Neck: No JVD, Normal carotid pulses Cardiac: Reg Rate and Rhythm, Normal S1 and S2, No Murmur Incision: No signs of infection, Dry/intact dressing Sternum: Stable Pacing Wires: In place Lungs: Normal Breath Sounds, No Wheeze, Rales, Rhonchi Neuro: Alert and responsive, No focal deficits noted Vascular: Normal capillary refill Extremities: No Clubbing, No Cyanosis, No Edema - Labs 05/28/18 05:35 05/28/18 05:35 Lab Results, Last 24 hours 05/28/18 05/28/18 05:35 05:35 WBC 10.5 Hgb 7.8 L Hct 23.8 L Plt Count 139 L Sodium 136 Potassium 3.9 Chloride 105 Carbon Dioxide 26 BUN 32 H Creatinine 1.08 Glucose 175 H Calcium 7.8 L - Imaging Chest Xray: image reviewed (No pneumothorax. Improved aeration in both lung chairez.) - VTE Documentation of Mechanical Device: Graduated compression elastic hosiery Consult Discharge Plan - Plan Referrals: Terrence Courtney DO [Partnered Physician] - 06/18/18 2:45 pm Fiona Ahuja MD [Partnered Physician] - 06/17/18 1:30 pm Garret Vitale MD [Primary Care Provider] - 06/02/18 1:00 pm
[2018-05-28] MEDS: *HR* Metformin 500 MG TABLET PO SCH ×2 (07:51→20:51)
[2018-05-28] MEDS: Aspirin Enteric Coated 81 MG Tablet PO SCH (07:51)
[2018-05-28] MEDS: Pantoprazole 40 MG VIAL IVP SCH (07:52)
[2018-05-28] MEDS: Gabapentin 300 MG CAPSULE PO SCH ×3 (07:58→20:51)
[2018-05-28] MEDS: Insulin LISPRO 300 UNITS/3 ML VIAL SQ SCH ×4 (07:58→20:54)
[2018-05-28] MEDS: *HR* OxyCODONE/APAP 5/325 TABLET PO PRN ×2 (07:58→16:59)
[2018-05-28] MEDS: Losartan/HCTZ 50-12.5 TABLET PO SCH (11:30)
[2018-05-29] MEDS: *HR* Heparin 5,000 UNIT/ML VIAL SQ SCH ×2 (05:35→16:52)
[2018-05-29] MEDS: Ketorolac 15 MG/ML VIAL IVP SCH ×5 (05:35→23:21)
[2018-05-29 05:57] LABS: Hematocrit 24.3 % (37.5-50.1); Hemoglobin 7.8 g/dL (12.9-16.9); Immature Granulocytes % 0.6 % (0-4); Lymphocytes % 14.7 %; Mean Corpuscular HGB Conc 32.1 g/dL (31.6-35.5); Mean Corpuscular Hemoglobin 27.2 pg (28.0-33.3); Mean Corpuscular Volume 84.7 fL (83.0-100.0); Platelet Count 158 K/mcL (140-400); Red Blood Count 2.87 M/mcL (4.19-5.50); Red Cell Distribution Width 14.8 % (11.5-14.5); Segmented Neutrophils % 71.4 %
[2018-05-29 05:58] LABS: Basophils % 0.5 %; Eosinophils # 0.3 K/mcL (0.0-0.6); Lymphocytes # 1.3 K/mcL (0.6-4.6); Monocytes # 0.8 K/mcL (0.0-1.3); Monocytes % 8.8 %; Neutrophils # 6.1 K/mcL (1.6-8.9)
[2018-05-29 06:06] LABS: BUN/Creatinine Ratio 29 (6-26); Blood Urea Nitrogen 29 mg/dL (8-23); Calcium 7.7 mg/dL (8.6-10.3); Carbon Dioxide 26 mEq/L (23-29); Chloride 106 mEq/L (98-107); Glucose 195 mg/dL (70-105); Osmolality,Calculated 293 (280-300); Potassium 3.9 mEq/L (3.5-5.1); Sodium 136 mEq/L (136-145); eGFR For African Americans > 60 (> 60); eGFR For Non-African Americans > 60 (> 60)
--- NOTE | 2018-05-29 07:21 | Cardiothoracic Progress Note ---
Date of Encounter: 05/29/18 Time of Encounter: 07:20 - Assessment and plan (1) Coronary artery disease Current Visit: No Status: Acute The patient is recovering well from his CABG2. The patient will continue ambulating in the hallways later today. The assessment and plan as outlined above was discussed with the patient and/or family members who expressed understanding and agreement. All questions were answered. Qualifiers: Coronary Disease-Associated Artery/Lesion type: [place] artery [place] vs. transplanted heart: [place] heart Associated angina: without angina Qualified Code(s): I25.10 - Atherosclerotic heart disease of [place] coronary artery without angina pectoris - Subjective Procedure(s) Performed: POD#4 S/P CABG2 Interval history: The patient remained hemodynamic stable overnight. He has been able to sit in a chair without difficulty. He has no complaints. Vital Signs, Last 4 Hours Temp Pulse Resp BP Pulse Ox 05/29/18 05:20 83 05/29/18 04:36 97.7 F 85 18 106/54 99 05/29/18 04:31 17 97 Oxgyen Flow Rate Oxygen Flow Rate (LPM) 0 Weight 05/27/18 05/28/18 05/29/18 23:59 23:59 23:59 Weight 130.7 kg 130.9 kg 131.1 kg - Physical Examination General: Conversant, No Apparent Distress Neck: No JVD, Normal carotid pulses Cardiac: Reg Rate and Rhythm, Normal S1 and S2, No Murmur Incision: No signs of infection, Dry/intact dressing Sternum: Stable Pacing Wires: In place Lungs: Normal Breath Sounds, No Wheeze, Rales, Rhonchi Neuro: Alert and responsive, No focal deficits noted Vascular: Normal capillary refill Extremities: No Clubbing, No Cyanosis, No Edema - Labs 05/29/18 05:30 05/29/18 04:00 Lab Results, Last 24 hours 05/29/18 05/29/18 04:00 05:30 WBC 8.5 Hgb 7.8 L Hct 24.3 L Plt Count 158 Sodium 136 Potassium 3.9 Chloride 106 Carbon Dioxide 26 BUN 29 H Creatinine 1.01 Glucose 195 H Calcium 7.7 L - VTE Documentation of Mechanical Device: Graduated compression elastic hosiery Consult Discharge Plan - Plan Referrals: Terrence Courtney DO [Partnered Physician] - 06/18/18 2:45 pm Fiona Ahuja MD [Partnered Physician] - 06/17/18 1:30 pm Garret Vitale MD [Primary Care Provider] - 06/02/18 1:00 pm
[2018-05-29] MEDS: *HR* Metformin 500 MG TABLET PO SCH ×2 (07:31→21:10)
[2018-05-29] MEDS: *HR* OxyCODONE/APAP 5/325 TABLET PO PRN ×2 (07:31→16:12)
[2018-05-29] MEDS: Losartan/HCTZ 50-12.5 TABLET PO SCH (07:32)
[2018-05-29] MEDS: Aspirin Enteric Coated 81 MG Tablet PO SCH (07:32)
[2018-05-29] MEDS: Pantoprazole 40 MG VIAL IVP SCH (07:33)
[2018-05-29] MEDS: Gabapentin 300 MG CAPSULE PO SCH ×3 (07:42→21:14)
[2018-05-29] MEDS: Insulin LISPRO 300 UNITS/3 ML VIAL SQ SCH ×4 (07:52→21:11)
[2018-05-29 07:57] LABS: Bilirubin,Urine Negative (Negative); Blood,Urine Negative (Negative); Clarity,Urine Clear (Clear); Color,Urine Yellow (Yellow); Glucose,Urine (UA) 250 mg/dL (Normal); Ketones,Urine Negative (Negative); Leukocyte Esterase,Urine Negative (Negative); Nitrite,Urine Negative (Negative); PH,Urine 5.5 pH Units (5.0-8.0); Protein,Urine 30 mg/dL (Neg-Trace); Urobilinogen,Urine Normal (Normal)
[2018-05-29 08:07] LABS: RBC,Urine 0-3 per hpf (0-3); Squamous Epithelial Cell,Urine Few per lpf (None-Few); WBC,Urine 0-3 per hpf (0-3)
[2018-05-30] MEDS: Ketorolac 15 MG/ML VIAL IVP SCH ×3 (06:14→17:19)
[2018-05-30] MEDS: *HR* Heparin 5,000 UNIT/ML VIAL SQ SCH ×2 (06:14→17:21)
[2018-05-30] MEDS: *HR* Metformin 500 MG TABLET PO SCH ×2 (08:12→20:50)
[2018-05-30] MEDS: Losartan/HCTZ 50-12.5 TABLET PO SCH (08:12)
[2018-05-30] MEDS: Pantoprazole 40 MG VIAL IVP SCH (08:13)
[2018-05-30] MEDS: *HR* OxyCODONE/APAP 5/325 TABLET PO PRN ×2 (08:13→20:51)
[2018-05-30] MEDS: Aspirin Enteric Coated 81 MG Tablet PO SCH (08:13)
[2018-05-30] MEDS: Gabapentin 300 MG CAPSULE PO SCH ×3 (08:17→20:50)
[2018-05-30] MEDS: Insulin LISPRO 300 UNITS/3 ML VIAL SQ SCH ×4 (08:18→20:55)
--- NOTE | 2018-05-30 10:28 | Cardiothoracic Progress Note ---
Date of Encounter: 05/30/18 Time of Encounter: 10:25 - Subjective Procedure(s) Performed: The patient was seen and examined. He is PPD#5 from his CABG2 and has been recovering uneventfully. He currently is lying in bed but has been ambulating by report. He is off oxygen, his chest tubes are out the pacer wires remained in place. He is remained in sinus rhythm by report with no arrhythmias. We discussed plans for discharge home. The patient seems somewhat uncertain regarding his discharge planning I recommended he discuss options with social service but felt he could go home tomorrow morning. Discussed plan with nursing staff and asked the contact social and human services assistant for possible visiting home health nurse Vital Signs, Last 4 Hours Temp Pulse Resp BP Pulse Ox 05/30/18 08:43 16 100 05/30/18 07:36 98.3 F 88 18 113/61 97 Oxgyen Flow Rate Oxygen Flow Rate (LPM) 0 Weight 05/28/18 05/29/18 05/30/18 23:59 23:59 23:59 Weight 130.9 kg 131.1 kg - Physical Examination Incision: Dry/intact dressing Sternum: Stable Pacing Wires: In place - Labs 05/29/18 05:30 05/29/18 04:00 - VTE Documentation of Mechanical Device: Graduated compression elastic hosiery Consult Discharge Plan - Plan Referrals: Terrence Courtney DO [Partnered Physician] - 06/18/18 2:45 pm Fiona Ahuja MD [Partnered Physician] - 06/17/18 1:30 pm Garret Vitale MD [Primary Care Provider] - 06/02/18 1:00 pm
[2018-05-31] MEDS: *HR* Heparin 5,000 UNIT/ML VIAL SQ SCH (03:48)
[2018-05-31 07:34] VITALS: BP 145/86
--- NOTE | 2018-05-31 07:34 | Discharge Summary ---
Orders not resulted at time of discharge: Pending orders 05/18/18 15:01 Red Blood Cells [BBK] Routine Date of Encounter: 05/31/18 Time of Encounter: 07:29 - Discharge Diagnosis (1) Coronary artery disease Priority: Primary Status: Acute Qualifiers: Coronary Disease-Associated Artery/Lesion type: [place] artery [place] vs. transplanted heart: [place] heart Associated angina: without angina Qualified Code(s): I25.10 - Atherosclerotic heart disease of [place] coronary artery without angina pectoris - Hospital Course Hospital course: Mr. Kraft is a 62 year old type II diabetic, hypertensive, moderately obese man with known CAD and hypercholesterolemia. He underwent cardiac catheterization with PCI and stent placement approximate 5 years ago. He has done well since that time; however, occasionally has noticed substernal chest pressure. He developed a cervical radiculopathy and was recommended for a C5/C6 laminectomy. Given his cardiac history and his cardiac risk profile he was recommended for cardiac clearance prior to undergoing his laminectomy. The patient underwent a nuclear stress test which revealed an LVEF 65% with a medium-sized, moderate intensity stress perfusion defect involving the basal to apicoinferior wall. Subsequent cardiac catheterization revealed severe 3 vessel CAD and an LVEF 65%. In particular, patient had a 99% in-stent restenosis in the proximal LAD, a 99% proximal OM2 lesion, a 90% mid RCA lesion (calcified vessel), and a 99% distal RCA lesion (calcified vessel). He was recommended for CABG. The patient underwent CABG 2 on 05/25/2018. His postoperative course was uncomplicated. He was ambulating in the hallways without difficulty. He was discharged home on POD #6. - Time Spent with Patient Total time spent providing and/or coordinating discharge services: - Discharge Medications Prescriptions: OxyCODONE/APAP 5/325 [Percocet 5/325 MG] 1 each PO Q4HR PRN 7 Days #42 tablet PRN Reason: Severe Pain Metoprolol [Lopressor] 12.5 mg PO BID #30 tablet Home Medications: Aspirin 81 mg PO DAILY 10/06/17 [History] Atorvastatin [Lipitor] 40 mg PO HS 10/06/17 [History] Dapagliflozin Propanediol [Farxiga] 5 mg PO DAILY 10/06/17 [History] Dulaglutide [Trulicity] 1.5 mg WE 10/06/17 [History] Gabapentin [Neurontin] 300 mg PO BID 10/06/17 [History] Gabapentin [Neurontin] 600 mg PO HS 10/06/17 [History] Insulin ASPART [NovoLOG] 18 - 22 unit SQ TIDWM 10/06/17 [History] Losartan/Hydrochlorothiazide [Losartan-Hctz 100-12.5 mg Tab] 1 tab PO DAILY [History] Metformin HCl [Glucophage] 1,000 mg PO BID 10/06/17 [History] Albuterol Sulfate [Proair Hfa] 1 puff IH DAILY PRN 05/18/18 [History] Fluticasone Propionate Nasal [Flonase] 50 mcg NS DAILY PRN 05/18/18 [History] Insulin Degludec [Tresiba Flextouch U-200] 120 unit SQ HS 05/18/18 [History] raNITIdine HCl [Zantac] 150 mg PO DAILY PRN 05/18/18 [History] Clopidogrel [Plavix] 75 mg PO DAILY 05/25/18 [History] Metoprolol [Lopressor] 12.5 mg PO BID #30 tablet 05/31/18 [Rx] OxyCODONE/APAP 5/325 [Percocet 5/325 MG] 1 each PO Q4HR PRN 7 Days #42 tablet [Rx] Allergies/Adverse Reactions: 3 Allergy/AdvReac Type Severity Reaction Status Date / Time No Known Allergies Allergy Verified 05/25/18 07:38 Date of admission: 05/25/18 12:23 Primary care physician: Garret Vitale MD Consults: 05/25/18 12:46 Consult to Cardiac Rehabilitation-Phase1 [CONS] Routine Comment: Reason for Consult: Post open heart Call Completed: Yes 05/27/18 09:27 Consult to Physical Therapy [CONS] Routine Comment: Evaluate, develop and implement POC Reason for Consult: post CABG Does patient have active BEDREST order?: No Is patient medically & hemodynamically stable?: Yes Patient assessed for mobility or mobilized this visit?: Yes OT [Consult to Occupational Therapy] [CONS] Routine Comment: Evaluate, develop and implement POC Reason for Consult: post CABG Does patient have active BEDREST order?: No Is patient medically & hemodynamically stable?: Yes Patient assessed for mobility or mobilized this visit?: Yes Procedure(s) Performed: 1. CABG 2 (GATES to LAD, SVG to OM2) performed 05/25/2018. 2. Endoscopic vein harvesting, greater saphenous vein from right lower extremity performed 05/25/2018. Discharging clinician: Fiona Ahuja Anticipated date of discharge: 05/31/18 Physical Examination Vital Signs, Last 4 Hours Temp Pulse Resp BP Pulse Ox 05/31/18 03:50 16 94 05/31/18 03:37 97.9 F 86 16 127/95 98 General: Conversant, No Apparent Distress Neck: No JVD, Normal carotid pulses Cardiac: Reg Rate and Rhythm, Normal S1 and S2, No Murmur Lungs: Normal Breath Sounds, No Wheeze, Rales, Rhonchi Neuro: Alert and responsive, No focal deficits noted, Motor nerves intact, Sensory nerves intact Vascular: Normal capillary refill Abdomen: Soft, Non-tender Skin: No rashes noted on visualized skin Musculoskeletal: No Chest Wall Tenderness Extremities: No Clubbing, No Cyanosis, No Edema - Patient Status Disposition: Home, Self-Care Condition: Good Functional capacity at discharge: independent ambulation Overall status at discharge: patient is progressing back to baseline - Discharge Instructions Follow Up With: Terrence Courtney DO [Partnered Physician] - 06/18/18 2:45 pm Fiona Ahuja MD [Partnered Physician] - 06/17/18 1:30 pm Garret Vitale MD [Primary Care Provider] - 06/02/18 1:00 pm - Diet and Activity Activity: sternal precautions, no driving for four weeks, no lifting greater than 10 pounds for eight weeks Diet: diabetic diet [facility] Aspirin Cont/Prescribed at DC: Yes Beta [place] Cont/Prescribed at DC: Yes Statin Cont/Prescribed at DC: Yes SURI/ARB Cont/Prescribed at DC: Yes - VTE Documentation of Mechanical Device: Intermittent pneumatic compression device
[2018-05-31] MEDS: *HR* Metformin 500 MG TABLET PO SCH (08:28)
[2018-05-31] MEDS: Aspirin Enteric Coated 81 MG Tablet PO SCH (08:28)
[2018-05-31] MEDS: Pantoprazole 40 MG VIAL IVP SCH (08:29)
[2018-05-31] MEDS: Losartan/HCTZ 50-12.5 TABLET PO SCH (08:29)
[2018-05-31] MEDS: Gabapentin 300 MG CAPSULE PO SCH (08:35)
[2018-05-31] MEDS: *HR* OxyCODONE/APAP 5/325 TABLET PO PRN ×2 (08:35→12:24)
[2018-05-31] MEDS: Insulin LISPRO 300 UNITS/3 ML VIAL SQ SCH ×2 (08:42→12:24)
--- NOTE | 2018-05-31 12:20 | Physician Discharge Referral ---
Home Health/Hosp Referral Info Transfer to: Home Health Attending Provider: Christopher Ahuja MD Provider in Charge Post Discharge: PCP - Diagnosis (1) Coronary artery disease Priority: Primary Status: Acute - Respiratory Orders Smoking Cessation: Smoking cessation has been advised. For more information, call the [place] Tobacco Quit Line at 5-539-LFZU-NOW. - Diet/Nutrition Diet/Nutrition Orders: Cardiac - Activity Activity Orders: Up ad cata, Ambulate - Services Needed Following services are medically necessary services: Home Health Aide - Transfer Medications Prescriptions: OxyCODONE/APAP 5/325 [Percocet 5/325 MG] 1 each PO Q4HR PRN 7 Days #42 tablet PRN Reason: Severe Pain Metoprolol [Lopressor] 12.5 mg PO BID #30 tablet Home Medications: Aspirin 81 mg PO DAILY 10/06/17 [History] Atorvastatin [Lipitor] 40 mg PO HS 10/06/17 [History] Dapagliflozin Propanediol [Farxiga] 5 mg PO DAILY 10/06/17 [History] Dulaglutide [Trulicity] 1.5 mg IJ WE 10/06/17 [History] Gabapentin [Neurontin] 300 mg PO BID 10/06/17 [History] Gabapentin [Neurontin] 600 mg PO HS 10/06/17 [History] Insulin ASPART [NovoLOG] 18 - 22 unit SQ TIDWM 10/06/17 [History] Losartan/Hydrochlorothiazide [Losartan-Hctz 100-12.5 mg Tab] 1 tab PO DAILY [History] Metformin HCl [Glucophage] 1,000 mg PO BID 10/06/17 [History] Albuterol Sulfate [Proair Hfa] 1 puff IH DAILY PRN 05/18/18 [History] Fluticasone Propionate Nasal [Flonase] 50 mcg NS DAILY PRN 05/18/18 [History] Insulin Degludec [Tresiba Flextouch U-200] 120 unit SQ HS 05/18/18 [History] raNITIdine HCl [Zantac] 150 mg PO DAILY PRN 05/18/18 [History] Clopidogrel [Plavix] 75 mg PO DAILY 05/25/18 [History] Metoprolol [Lopressor] 12.5 mg PO BID #30 tablet 05/31/18 [Rx] OxyCODONE/APAP 5/325 [Percocet 5/325 MG] 1 each PO Q4HR PRN 7 Days #42 tablet [Rx] Allergies/Adverse Reactions: 3 Allergy/AdvReac Type Severity Reaction Status Date / Time No Known Allergies Allergy Verified 05/25/18 07:38 Certification: Further, I certify that my clinical findings support that this patient is homebound (i.e. absences from home require considerable and taxing effort and are for medical reasons or jain services or infrequently or short duration when for other reasons) because: Homebound Reason: Post-surgery restriction and or conditions limit ability to leave home Attestation: My signature below is to certify that this patient is under my care and that I, or nurse practitioner, or a physician's learning support assistant working with me, has a face-to -face encounter with this patient.
--- NOTE | 2018-05-31 14:31 | Physician Discharge Referral ---
Home Health/Hosp Referral Info Transfer to: Home Health Attending Provider: Crhistopher Ahuja MD Provider in Charge Post Discharge: PCP - Diagnosis (1) Coronary artery disease Priority: Primary Status: Acute - Respiratory Orders Smoking Cessation: Smoking cessation has been advised. For more information, call the [place] Tobacco Quit Line at 0-491-NXVB-NOW. - Diet/Nutrition Diet/Nutrition Orders: Cardiac - Activity Activity Orders: Up ad cata, Ambulate - Services Needed Following services are medically necessary services: Physical Therapy, Occupational Therapy - Transfer Medications Prescriptions: OxyCODONE/APAP 5/325 [Percocet 5/325 MG] 1 each PO Q4HR PRN 7 Days #42 tablet PRN Reason: Severe Pain Metoprolol [Lopressor] 12.5 mg PO BID #30 tablet Home Medications: Aspirin 81 mg PO DAILY 10/06/17 [History] Atorvastatin [Lipitor] 40 mg PO HS 10/06/17 [History] Dapagliflozin Propanediol [Farxiga] 5 mg PO DAILY 10/06/17 [History] Dulaglutide [Trulicity] 1.5 mg IJ WE 10/06/17 [History] Gabapentin [Neurontin] 300 mg PO BID 10/06/17 [History] Gabapentin [Neurontin] 600 mg PO HS 10/06/17 [History] Insulin ASPART [NovoLOG] 18 - 22 unit SQ TIDWM 10/06/17 [History] Losartan/Hydrochlorothiazide [Losartan-Hctz 100-12.5 mg Tab] 1 tab PO DAILY [History] Metformin HCl [Glucophage] 1,000 mg PO BID 10/06/17 [History] Albuterol Sulfate [Proair Hfa] 1 puff IH DAILY PRN 05/18/18 [History] Fluticasone Propionate Nasal [Flonase] 50 mcg NS DAILY PRN 05/18/18 [History] Insulin Degludec [Tresiba Flextouch U-200] 120 unit SQ HS 05/18/18 [History] raNITIdine HCl [Zantac] 150 mg PO DAILY PRN 05/18/18 [History] Clopidogrel [Plavix] 75 mg PO DAILY 05/25/18 [History] Metoprolol [Lopressor] 12.5 mg PO BID #30 tablet 05/31/18 [Rx] OxyCODONE/APAP 5/325 [Percocet 5/325 MG] 1 each PO Q4HR PRN 7 Days #42 tablet [Rx] Allergies/Adverse Reactions: 3 Allergy/AdvReac Type Severity Reaction Status Date / Time No Known Allergies Allergy Verified 05/25/18 07:38 Certification: Further, I certify that my clinical findings support that this patient is homebound (i.e. absences from home require considerable and taxing effort and are for medical reasons or temple services or infrequently or short duration when for other reasons) because: Homebound Reason: Post-surgery restriction and or conditions limit ability to leave home Attestation: My signature below is to certify that this patient is under my care and that I, or nurse practitioner, or a physician's records assistant working with me, has a face-to -face encounter with this patient.
== END 2018-05-31 13:11 | disposition home or self-care (01) | DRG 236 ==
LOC: SAMDAY 06:53 → ICNU 12:23 → 2NNU 05-26 17:50
PROVIDERS: ADMIT Thoracic Surgery (Cardiothoracic Vascular Surgery); ATTEND Thoracic Surgery (Cardiothoracic Vascular Surgery)

== ENCOUNTER 2018-06-19 09:35 | Observation (INO) ==
--- NOTE | 2018-06-19 10:01 | Emergency Department Note ---
Disposition Clinical Impression: Hypoglycemia Chest pain Qualifiers: Chest pain type: unspecified Qualified Code(s): R07.9 - Chest pain, unspecified Syncope Qualifiers: Syncope type: unspecified Qualified Code(s): R55 - Syncope and collapse Disposition: Admitted As Inpatient Condition: Good Forms: ED Satisfaction Letter Time of Disposition: 11:44 General Adult HPI - General Chief complaint: ED Chest Pain Stated complaint: CP Time Seen by Provider: 06/19/18 09:38 Source: patient, family Mode of arrival: ambulatory Limitations: no limitations Nursing Notes Reviewed: Yes Vital Signs Reviewed: Yes - History of Present Illness HPI Narrative: 62-year-old male with significant past medical history of CABG completed approximately 2 and half weeks ago, diabetes presenting to the emergency Department chief complaint of chest pain and syncope. Patient states yesterday he woke up from sleep and passed out. He states he remembers vomiting but does not remember anything else. Does not know if he hit his head. Patient states when he woke up he went back to baseline did not have any difficulties the rest of the day. Then this morning when he woke up he started having substernal chest pain. Did not radiate anywhere. Did not feel diaphoretic, nauseous or vomit. Did not try any medications at home for this. Patient denies any recent illnesses or fevers. Does state he had 2-3 loose bowel movements a day for the past 2 days but tried Imodium and resolved the issues. Patient currently on Plavix and baby aspirin. Patient does state he takes basal insulin along with sliding scale. His blood glucose levels have been approximately 30-120 over the past 2 weeks. He states he lost 20-30 pounds since his CABG. His insulin prescription has not changed. Pain Scale: 5 - Related Data Home Medications Medication Instructions Recorded Confirmed Aspirin 81 mg PO DAILY 10/06/17 06/19/18 Atorvastatin [Lipitor] 40 mg PO HS 10/06/17 06/19/18 Dapagliflozin Propanediol [Farxiga] 5 mg PO DAILY 10/06/17 06/19/18 Dulaglutide [Trulicity] 1.5 mg IJ WE 10/06/17 06/19/18 Gabapentin [Neurontin] 300 mg PO QID 10/06/17 06/19/18 Insulin ASPART [NovoLOG] 18 - 22 unit SQ TIDWM 10/06/17 06/19/18 Losartan/Hydrochlorothiazide 1 tab PO DAILY 10/06/17 06/19/18 [Losartan-Hctz 100-12.5 mg Tab] Metformin HCl [Glucophage] 1,000 mg PO BIDWM 10/06/17 06/19/18 Albuterol Sulfate [Proair Hfa] 2 puff IH Q4H PRN 05/18/18 06/19/18 Fluticasone Propionate Nasal 50 mcg NS DAILY PRN 05/18/18 06/19/18 [Flonase] Insulin Degludec [Tresiba 120 unit SQ HS 05/18/18 06/19/18 Flextouch U-200] raNITIdine HCl [Zantac] 150 mg PO BID PRN 05/18/18 06/19/18 Clopidogrel [Plavix] 75 mg PO DAILY 05/25/18 06/19/18 Metoprolol [Lopressor] 12.5 mg PO BID 06/19/18 06/19/18 Allergies Allergy/AdvReac Type Severity Reaction Status Date / Time No Known Allergies Allergy Verified 06/19/18 10:44 All systems ED: reviewed and negative except as stated. Constitutional: Reports: as per HPI Eyes: Reports: as per HPI ENT ED: Reports: as per HPI Cardiovascular: Reports: chest pain. Denies: palpitations, dyspnea on exertion Respiratory: Denies: cough, dyspnea, wheezes Gastrointestinal: Reports: vomiting. Denies: abdominal pain Genitourinary: Reports: as per HPI Musculoskeletal: Reports: as per HPI Integumentary: Reports: as per HPI Neurological: Denies: weakness, numbness, paresthesias Psychiatric: Reports: as per HPI Endocrine: Reports: as per HPI Hematological/Lymphatic: Reports: as per HPI Allergic/Immunologic: Reports: as per HPI Past Medical History - Past Medical History Attestation: Yes The following information was validated with the patient. Medical history: Reports: diabetes, GERD, hyperlipidemia, hypertension, other Surgical history: Reports: other Psychiatric history: Reports: depression - Social History Smoking Status: Never smoker Smokeless Tobacco Status: No Alcohol use: Reports: rarely Drug use: Reports: none Physical Exam - General Limitations: no limitations General appearance: alert, in no apparent distress - Head Head exam: atraumatic, normocephalic, normal inspection - Eye Eye exam: Present: normal appearance, PERRL, EOMI. Absent: scleral icterus, conjunctival injection - ENT ENT exam: normal exam, mucous membranes moist - Neck Neck exam: Present: normal inspection, full ROM. Absent: tenderness, meningismus - Chest Chest inspection: Present: normal inspection, symmetric chest wall rise. Absent : tenderness, rash - Respiratory Respiratory exam: Present: normal lung sounds bilaterally. Absent: respiratory distress, wheezes - Cardiovascular Cardiovascular exam: Present: regular rate, normal rhythm, normal heart sounds - Abdominal Exam Abdominal exam: Present: soft, Non-Tender. Absent: distention, guarding, rebound - Extremities Exam Extremities exam: Present: normal inspection, full ROM - Neurological Exam Neurological exam: Present: alert, oriented X3 - Psychiatric Psychiatric exam: Present: normal affect, normal mood - Skin Skin exam: Present: warm, intact Course Course Narrative: 62-year-old male presenting for syncope and chest pain. Patient had recent CABG physical exam within normal limits. Patient's vital signs stable. He is alert and oriented 3 in the Room. Bedside point of care glucose level is 37. Concerned that the symptoms are due to hypoglycemia. We will provide the patient with oral nutrition and complete laboratory analysis including EKG, troponin, chest x-ray and BMP. Disposition most likely admission but pending results. Patient agrees with this plan. - Reevaluation(s) Reevaluation #1: Patient's laboratory analysis shows anemia but otherwise unchanged baseline. Patient has denied any chest pain throughout his stay. He is alert and oriented 3 in the room with stable vital signs. Due to his hypoglycemia and history of ACS we will have him admitted for further workup. Patient agrees with this plan. Spoke with the hospitalist on-call Dr. Bowden who agrees to accept the patient at this time. Time: 11:44 Vital Signs Temperature 98.2 F 06/19/18 09:36 Pulse Rate 90 06/19/18 09:36 Respiratory Rate 18 06/19/18 09:36 Blood Pressure 114/70 06/19/18 09:36 O2 Sat by Pulse Oximetry 96 06/19/18 09:36 Temperature 98.2 F 06/19/18 09:36 Pulse Rate 91 06/19/18 09:54 Respiratory Rate 20 06/19/18 09:54 Blood Pressure 134/69 06/19/18 09:54 O2 Sat by Pulse Oximetry 98 08/04/18 09:54 Oxygen Delivery Oxygen Delivery Room Air Medical Decision Making - Lab Data Result diagrams: 06/19/18 10:06 06/19/18 09:52 Lab Results 06/19/18 06/19/18 06/19/18 Range/Units 09:52 09:54 10:06 WBC 12.4 H (4.3-11.1) K/mcL RBC 4.00 L (4.19-5.50) M/mcL Hgb 10.5 L (12.9-16.9) g/dL Hct 33.1 L (37.5-50.1) % MCV 82.8 L (83.0-100.0) fL MCH 26.3 L (28.0-33.3) pg MCHC 31.7 (31.6-35.5) g/dL RDW 14.3 (11.5-14.5) % Plt Count 448 H (140-400) K/mcL MPV 9.7 (9.4-12.4) fL Immature Gran % 0.5 (0-4) % Seg Neutrophils % 81.1 % Lymphocytes % 9.3 % Monocytes % 5.8 % Eosinophils % 2.7 % Basophils % 0.6 % Neutrophils # 10.1 H (1.6-8.9) K/mcL Lymphocytes # 1.2 (0.6-4.6) K/mcL Monocytes # 0.7 (0.0-1.3) K/mcL Eosinophils # 0.3 (0.0-0.6) K/mcL Basophils # 0.1 (0.0-0.2) K/mcL PT (9.4-12.1) Seconds INR APTT (26.0-36.0) Seconds Sodium 138 (136-145) mEq/L Potassium 3.7 (3.5-5.1) mEq/L Chloride 103 (98-107) mEq/L Carbon Dioxide 26 (23-29) mEq/L BUN 24 H (8-23) mg/dL Creatinine 0.98 (0.70-1.30) mg/dL Est GFR ( Amer) > 60 (> 60) Est GFR (Non-Af Amer) > 60 (> 60) BUN/Creatinine Ratio 24 (6-26) Glucose 52 L (70-105) mg/dL Est Mean Plasma Glucose mg/dl Hemoglobin A1c ( - 5.6) % Calculated Osmolality 287 (280-300) Calcium 9.0 (8.6-10.3) mg/dL Magnesium 1.7 (1.6-2.6) mg/dL Troponin I < 0.03 (< 0.04) ng/mL 06/19/18 06/19/18 Range/Units 10:06 10:06 WBC (4.3-11.1) K/mcL RBC (4.19-5.50) M/mcL Hgb (12.9-16.9) g/dL Hct (37.5-50.1) % MCV (83.0-100.0) fL MCH (28.0-33.3) pg MCHC (31.6-35.5) g/dL RDW (11.5-14.5) % Plt Count (140-400) K/mcL MPV (9.4-12.4) fL Immature Gran % (0-4) % Seg Neutrophils % % Lymphocytes % % Monocytes % % Eosinophils % % Basophils % % Neutrophils # (1.6-8.9) K/mcL Lymphocytes # (0.6-4.6) K/mcL Monocytes # (0.0-1.3) K/mcL Eosinophils # (0.0-0.6) K/mcL Basophils # (0.0-0.2) K/mcL PT 12.2 H (9.4-12.1) Seconds INR 1.1 APTT 29.3 (26.0-36.0) Seconds Sodium (136-145) mEq/L Potassium (3.5-5.1) mEq/L Chloride (98-107) mEq/L Carbon Dioxide (23-29) mEq/L BUN (8-23) mg/dL Creatinine (0.70-1.30) mg/dL Est GFR ( Amer) (> 60) Est GFR (Non-Af Amer) (> 60) BUN/Creatinine Ratio (6-26) Glucose (70-105) mg/dL Est Mean Plasma Glucose 146 mg/dl Hemoglobin A1c 6.7 H ( - 5.6) % Calculated Osmolality (280-300) Calcium (8.6-10.3) mg/dL Magnesium (1.6-2.6) mg/dL Troponin I (< 0.04) ng/mL - EKG Data EKG #1 EKG attestation: Yes I reviewed and interpreted this EKG. EKG results narrative: Sinus rhythm. 91 bpm. MD interval 129, QRS 92, QTC 374. No signs of acute ST segment elevation or ischemia.
[2018-06-19 10:16] LABS: Basophils # 0.1 K/mcL (0.0-0.2); Basophils % 0.6 %; Eosinophils # 0.3 K/mcL (0.0-0.6); Eosinophils % 2.7 %; Hematocrit 33.1 % (37.5-50.1); Hemoglobin 10.5 g/dL (12.9-16.9); Immature Granulocytes % 0.5 % (0-4); Lymphocytes # 1.2 K/mcL (0.6-4.6); Lymphocytes % 9.3 %; Mean Corpuscular HGB Conc 31.7 g/dL (31.6-35.5); Mean Corpuscular Hemoglobin 26.3 pg (28.0-33.3); Mean Corpuscular Volume 82.8 fL (83.0-100.0); Mean Platelet Volume 9.7 fL (9.4-12.4); Monocytes # 0.7 K/mcL (0.0-1.3); Monocytes % 5.8 %; Neutrophils # 10.1 K/mcL (1.6-8.9); Platelet Count 448 K/mcL (140-400); Red Cell Distribution Width 14.3 % (11.5-14.5); Segmented Neutrophils % 81.1 %
[2018-06-19 10:25] LABS: INR 1.1; Prothrombin Time 12.2 Seconds (9.4-12.1)
[2018-06-19 10:28] LABS: Activated Partial Thrombo Time 29.3 Seconds (26.0-36.0)
[2018-06-19 10:39] LABS: BUN/Creatinine Ratio 24 (6-26); Blood Urea Nitrogen 24 mg/dL (8-23); Carbon Dioxide 26 mEq/L (23-29); Chloride 103 mEq/L (98-107); Glucose 52 mg/dL (70-105); Osmolality,Calculated 287 (280-300); Potassium 3.7 mEq/L (3.5-5.1); Sodium 138 mEq/L (136-145); eGFR For Non-African Americans > 60 (> 60)
[2018-06-19 10:40] LABS: Troponin I < 0.03 ng/mL (< 0.04)
[2018-06-19 11:15] LABS: Estimated Average Glucose 146 mg/dl; Hemoglobin A1C 6.7 %
--- NOTE | 2018-06-19 11:56 | Emergency Department Note ---
Disposition Clinical Impression: Hypoglycemia Disposition: Admitted As Inpatient Forms: ED Satisfaction Letter General Adult HPI - General Chief complaint: ED Chest Pain Stated complaint: CP Time Seen by Provider: 06/19/18 09:38 Source: patient, family Mode of arrival: ambulatory Limitations: no limitations - History of Present Illness Pain Scale: 5 - Related Data Home Medications Medication Instructions Recorded Confirmed Aspirin 81 mg PO DAILY 10/06/17 06/19/18 Atorvastatin [Lipitor] 40 mg PO HS 10/06/17 06/19/18 Dapagliflozin Propanediol [Farxiga] 5 mg PO DAILY 10/06/17 06/19/18 Dulaglutide [Trulicity] 1.5 mg IJ WE 10/06/17 06/19/18 Gabapentin [Neurontin] 300 mg PO QID 10/06/17 06/19/18 Insulin ASPART [NovoLOG] 18 - 22 unit SQ TIDWM 10/06/17 06/19/18 Losartan/Hydrochlorothiazide 1 tab PO DAILY 10/06/17 06/19/18 [Losartan-Hctz 100-12.5 mg Tab] Metformin HCl [Glucophage] 1,000 mg PO BIDWM 10/06/17 06/19/18 Albuterol Sulfate [Proair Hfa] 2 puff IH Q4H PRN 05/18/18 06/19/18 Fluticasone Propionate Nasal 50 mcg NS DAILY PRN 05/18/18 06/19/18 [Flonase] Insulin Degludec [Tresiba 120 unit SQ HS 05/18/18 06/19/18 Flextouch U-200] raNITIdine HCl [Zantac] 150 mg PO BID PRN 05/18/18 06/19/18 Clopidogrel [Plavix] 75 mg PO DAILY 05/25/18 06/19/18 Metoprolol [Lopressor] 12.5 mg PO BID 06/19/18 06/19/18 Allergies Allergy/AdvReac Type Severity Reaction Status Date / Time No Known Allergies Allergy Verified 06/19/18 10:44 Constitutional: Reports: as per HPI Eyes: Reports: as per HPI ENT ED: Reports: as per HPI Cardiovascular: Reports: chest pain. Denies: palpitations, dyspnea on exertion Respiratory: Denies: cough, dyspnea, wheezes Gastrointestinal: Reports: vomiting. Denies: abdominal pain Genitourinary: Reports: as per HPI Musculoskeletal: Reports: as per HPI Integumentary: Reports: as per HPI Neurological: Denies: weakness, numbness, paresthesias Psychiatric: Reports: as per HPI Endocrine: Reports: as per HPI Hematological/Lymphatic: Reports: as per HPI Allergic/Immunologic: Reports: as per HPI Past Medical History - Past Medical History Medical history: Reports: diabetes, GERD, hyperlipidemia, hypertension, other Surgical history: Reports: other Psychiatric history: Reports: depression - Social History Smoking Status: Never smoker Smokeless Tobacco Status: No Alcohol use: Reports: rarely Drug use: Reports: none Physical Exam - General Limitations: no limitations General appearance: alert, in no apparent distress Course Vital Signs Temperature 98.2 F 06/19/18 09:36 Pulse Rate 90 06/19/18 09:36 Respiratory Rate 18 06/19/18 09:36 Blood Pressure 114/70 06/19/18 09:36 O2 Sat by Pulse Oximetry 96 06/19/18 09:36 Temperature 98.2 F 06/19/18 09:36 Pulse Rate 91 06/19/18 09:54 Respiratory Rate 20 06/19/18 09:54 Blood Pressure 134/69 06/19/18 09:54 O2 Sat by Pulse Oximetry 98 06/19/18 09:54 Oxygen Delivery Oxygen Delivery Room Air Medical Decision Making - Lab Data Result diagrams: 06/19/18 10:06 06/19/18 09:52 Lab Results 06/19/18 06/19/18 06/19/18 Range/Units 09:52 09:54 10:06 WBC 12.4 H (4.3-11.1) K/mcL RBC 4.00 L (4.19-5.50) M/mcL Hgb 10.5 L (12.9-16.9) g/dL Hct 33.1 L (37.5-50.1) % MCV 82.8 L (83.0-100.0) fL MCH 26.3 L (28.0-33.3) pg MCHC 31.7 (31.6-35.5) g/dL RDW 14.3 (11.5-14.5) % Plt Count 448 H (140-400) K/mcL MPV 9.7 (9.4-12.4) fL Immature Gran % 0.5 (0-4) % Seg Neutrophils % 81.1 % Lymphocytes % 9.3 % Monocytes % 5.8 % Eosinophils % 2.7 % Basophils % 0.6 % Neutrophils # 10.1 H (1.6-8.9) K/mcL Lymphocytes # 1.2 (0.6-4.6) K/mcL Monocytes # 0.7 (0.0-1.3) K/mcL Eosinophils # 0.3 (0.0-0.6) K/mcL Basophils # 0.1 (0.0-0.2) K/mcL PT (9.4-12.1) Seconds INR APTT (26.0-36.0) Seconds Sodium 138 (136-145) mEq/L Potassium 3.7 (3.5-5.1) mEq/L Chloride 103 (98-107) mEq/L Carbon Dioxide 26 (23-29) mEq/L BUN 24 H (8-23) mg/dL Creatinine 0.98 (0.70-1.30) mg/dL Est GFR ( Amer) > 60 (> 60) Est GFR (Non-Af Amer) > 60 (> 60) BUN/Creatinine Ratio 24 (6-26) Glucose 52 L (70-105) mg/dL Est Mean Plasma Glucose mg/dl Hemoglobin A1c ( - 5.6) % Calculated Osmolality 287 (280-300) Calcium 9.0 (8.6-10.3) mg/dL Magnesium 1.7 (1.6-2.6) mg/dL Troponin I < 0.03 (< 0.04) ng/mL 06/19/18 06/19/18 Range/Units 10:06 10:06 WBC (4.3-11.1) K/mcL RBC (4.19-5.50) M/mcL Hgb (12.9-16.9) g/dL Hct (37.5-50.1) % MCV (83.0-100.0) fL MCH (28.0-33.3) pg MCHC (31.6-35.5) g/dL RDW (11.5-14.5) % Plt Count (140-400) K/mcL MPV (9.4-12.4) fL Immature Gran % (0-4) % Seg Neutrophils % % Lymphocytes % % Monocytes % % Eosinophils % % Basophils % % Neutrophils # (1.6-8.9) K/mcL Lymphocytes # (0.6-4.6) K/mcL Monocytes # (0.0-1.3) K/mcL Eosinophils # (0.0-0.6) K/mcL Basophils # (0.0-0.2) K/mcL PT 12.2 H (9.4-12.1) Seconds INR 1.1 APTT 29.3 (26.0-36.0) Seconds Sodium (136-145) mEq/L Potassium (3.5-5.1) mEq/L Chloride (98-107) mEq/L Carbon Dioxide (23-29) mEq/L BUN (8-23) mg/dL Creatinine (0.70-1.30) mg/dL Est GFR ( Amer) (> 60) Est GFR (Non-Af Amer) (> 60) BUN/Creatinine Ratio (6-26) Glucose (70-105) mg/dL Est Mean Plasma Glucose 146 mg/dl Hemoglobin A1c 6.7 H ( - 5.6) % Calculated Osmolality (280-300) Calcium (8.6-10.3) mg/dL Magnesium (1.6-2.6) mg/dL Troponin I (< 0.04) ng/mL Attestation Statement - Attestation Attestation: I examined this patient and my medical decision-making was reviewed with the Resident Physician. I agree with the documented findings, disposition and treatment plan as described except to the extent set forth below. 62 year old male presents to the ED with complatins of syncope and fatigue and that he most recently had a CABG with Dr. Ahuja about a month ago. He has lost baout 30 pounds in the interim period and is an insulin/oral dependent diabetic and states that he had passed out ysterday morning and wokeu wiht vomit on his abdomen It appares that eh is 36 on POC glucose test. Likley he is no appropiatley taking his insulin and he states he has had decreased appetite since the surgery. Likely his syncope is due to his hypoglycemia and he has also been experincing diarrhea and [facility]. Admit ot medicine
--- NOTE | 2018-06-19 14:10 | Internal Med History&Physical ---
Date of Encounter: 06/19/18 Time of Encounter: 11:00 Internal Medicine - H&P: HPI Chief complaint: Syncopal episode/chest pain Admitted From: Home Plans for Post Hospital Care: Home History of present illness: Patient is a 61-year-old male with past medical history significant for CABG 2 (GATES to LAD, SVG to OM2) on 05/25/18, hypertension, diabetes type 2 and hyperlipidemia who presents to the ER on 06/19/18 due to chest pain and syncopal episode. Patient reports that substernal chest pain woke him up this morning out of sleep which he described as heaviness without any provoking or relieving factors and without radiation. Patient also reports of a syncopal episode on 06/18/18 and was found on the floor by his granddaughter. Patient states his blood glucose was found to be in the 40s. He does report of recently with multiple episodes of hypoglycemia. In the ER, patients first set of cardiac biomarkers were negative. To have a blood glucose of 52. Patient will be admitted for syncopal workup and ACS rule out. Past Med Surg Social Fam HX - Past Medical History Medical history: diabetes, GERD, hyperlipidemia, hypertension, other Additional medical history: CAD,depression, herniated disc neck c5-c6 and L5, removal of benign lesion of nose,excision of dermal melanocyctic proliferation on the nasal tip, hyperlipidemia, unknown food allergy, acromioclavicular joint arthritis, kat on cpap, servere sprain to left thumb. acromioclavicular joint arthritis. chest pain Psychiatric history: depression - Past Surgical History Surgical History: other Additional surgical history: bilateral knee replacement, left and right rotator cuff repair, - Social History Smoking Status: Never smoker Smokeless Tobacco Status: No Alcohol use: rarely Drug use: none - Additional Family History Additional family history: Noncontributory Internal Medicine - H&P: Meds Aspirin 81 mg PO DAILY 10/06/17 [History] Atorvastatin [Lipitor] 40 mg PO HS 10/06/17 [History] Dapagliflozin Propanediol [Farxiga] 5 mg PO DAILY 10/06/17 [History] Dulaglutide [Trulicity] 1.5 mg IJ WE 10/06/17 [History] Gabapentin [Neurontin] 300 mg PO QID 10/06/17 [History] Insulin ASPART [NovoLOG] 18 - 22 unit SQ TIDWM 10/06/17 [History] Losartan/Hydrochlorothiazide [Losartan-Hctz 100-12.5 mg Tab] 1 tab PO DAILY [History] Metformin HCl [Glucophage] 1,000 mg PO BIDWM 10/06/17 [History] Albuterol Sulfate [Proair Hfa] 2 puff IH Q4H PRN 05/18/18 [History] Fluticasone Propionate Nasal [Flonase] 50 mcg NS DAILY PRN 05/18/18 [History] Insulin Degludec [Tresiba Flextouch U-200] 120 unit SQ HS 05/18/18 [History] raNITIdine HCl [Zantac] 150 mg PO BID PRN 05/18/18 [History] Clopidogrel [Plavix] 75 mg PO DAILY 05/25/18 [History] Metoprolol [Lopressor] 12.5 mg PO BID 06/19/18 [History] 3 Allergy/AdvReac Type Severity Reaction Status Date / Time No Known Allergies Allergy Verified 06/19/18 10:44 All Systems PM: A 10-system review of systems was performed and is negative for pertinent findings except as documented above in the HPI. - Constitutional Vitals: Temp Pulse Resp BP Pulse Ox 98.2 F 91 15 131/75 100 06/19/18 09:36 06/19/18 13:42 06/19/18 13:42 06/19/18 13:42 06/19/18 13:42 General appearance: Present: A&O X 3, no acute distress - Eye Eye exam: Present: normal appearance - ENT ENT exam: Present: mucous membranes moist - Respiratory Respiratory exam: Present: CTAB. Absent: accessory muscle use, rales, rhonchi, wheezes - Cardiovascular Cardiovascular exam: Present: RRR, +S1, +S2. Absent: diastolic murmur, gallop, rubs, systolic murmur - GI/Abdominal GI/Abdominal exam: Present: normal bowel sounds, soft, no peritoneal signs. Absent: distended, tenderness - Extremities Exam Extremities exam: Absent: pedal edema - Neurological Exam Neurological exam: Present: alert, oriented X3 - Psychiatric Psychiatric exam: Present: normal mood - Skin Skin exam: Present: normal color Internal Med - H&P Results - Labs CBC & Chem 7: 06/19/18 10:06 06/19/18 09:52 - Assessment and plan (1) Chest pain Current Visit: Yes Status: Acute Assessment and plan: Patient with recent CABG 2 (GATES to LAD, SVG to OM2) on 05/25/18 First set of cardiac biomarkers negative Will trend serial troponins and monitor on telemetry Cardiology consulted and appreciate recommendations Qualifiers: Qualified Code(s): R07.9 - Chest pain, unspecified (2) Syncope Current Visit: Yes Status: Acute Assessment and plan: Suspect syncopal episode secondary to hypoglycemia as patient was found to have a glucose in the 40s Echocardiogram on 05/28/18 was technically suboptimal; will repeat Qualifiers: Qualified Code(s): R55 - Syncope and collapse (3) Hypoglycemia Current Visit: Yes Status: Acute Assessment and plan: Glucose on admission was 52 Will adjust diabetic home medication regimen and monitor (4) Coronary artery disease Current Visit: No Status: Acute Assessment and plan: Patient with recent CABG as above Will continue home medications Qualifiers: Coronary Disease-Associated Artery/Lesion type: [place] artery [place] vs. transplanted heart: quechan heart Associated angina: without angina Qualified Code(s): I25.10 - Atherosclerotic heart disease of [place] coronary artery without angina pectoris (5) DVT prophylaxis Current Visit: Yes Status: Acute Assessment and plan: Subcutaneous heparin - Time Spent With Patient Total time spent is greater than 50% in coordination of care (as documented) at patient's floor/unit and/or counseling patient:
[2018-06-19] MEDS ORDERED: Naloxone 0.4 MG/ML INJ IVP PRN (14:21)
[2018-06-19] MEDS ORDERED: Famotidine 20 MG TABLET PO PRN (14:23)
[2018-06-19] MEDS ORDERED: Fluticasone Propionate Nasal 50 MCG/SPRAY BOTTLE NS PRN (14:23)
[2018-06-19] MEDS ORDERED: D5% in Water 1,000 ML IVC PRN (14:29)
[2018-06-19] MEDS ORDERED: Dextrose Gel 15 GM/37.5 ML TUBE PO PRN ×2 (14:29)
[2018-06-19] MEDS ORDERED: *HR* Dextrose 50 % in Water (Syg) 50 ML SYRINGE IVP PRN (14:29)
[2018-06-19] MEDS: Gabapentin 300 MG CAPSULE PO SCH ×2 (16:32→20:25)
[2018-06-19] MEDS: Insulin LISPRO 300 UNITS/3 ML VIAL SQ SCH (16:50)
[2018-06-19] MEDS: *HR* Heparin 5,000 UNIT/ML VIAL SQ SCH (20:25)
[2018-06-20 02:44] LABS: Basophils # 0.1 K/mcL (0.0-0.2); Basophils % 0.6 %; Eosinophils # 0.6 K/mcL (0.0-0.6); Eosinophils % 6.7 %; Hematocrit 30.3 % (37.5-50.1); Hemoglobin 9.6 g/dL (12.9-16.9); Immature Granulocytes % 0.5 % (0-4); Lymphocytes # 1.6 K/mcL (0.6-4.6); Lymphocytes % 18.4 %; Mean Corpuscular HGB Conc 31.7 g/dL (31.6-35.5); Mean Corpuscular Hemoglobin 25.9 pg (28.0-33.3); Mean Corpuscular Volume 81.7 fL (83.0-100.0); Mean Platelet Volume 10.1 fL (9.4-12.4); Monocytes # 0.6 K/mcL (0.0-1.3); Monocytes % 6.8 %; Neutrophils # 5.7 K/mcL (1.6-8.9); Platelet Count 384 K/mcL (140-400); Red Blood Count 3.71 M/mcL (4.19-5.50); Red Cell Distribution Width 14.3 % (11.5-14.5)
[2018-06-20 02:55] LABS: BUN/Creatinine Ratio 25 (6-26); Blood Urea Nitrogen 23 mg/dL (8-23); Calcium 8.7 mg/dL (8.6-10.3); Carbon Dioxide 26 mEq/L (23-29); Chloride 102 mEq/L (98-107); Glucose 203 mg/dL (70-105); Osmolality,Calculated 289 (280-300); Potassium 3.9 mEq/L (3.5-5.1); Sodium 135 mEq/L (136-145); eGFR For Non-African Americans > 60 (> 60)
[2018-06-20] MEDS: *HR* Heparin 5,000 UNIT/ML VIAL SQ SCH ×3 (06:00→21:38)
[2018-06-20] MEDS ORDERED: Perflutren Lipid Microsphere 1.3 ML in 0.9 % Sodium Chloride 8.7 ML IVP ONE (07:27)
[2018-06-20] MEDS: Insulin LISPRO 300 UNITS/3 ML VIAL SQ SCH ×3 (08:49→16:54)
--- NOTE | 2018-06-20 08:55 | Cardiology Consult Note ---
Date of Encounter: 06/20/18 Time of Encounter: 08:52 Assessment and Plan (1) Coronary artery disease Current Visit: No Status: Acute Recent CABG, seems stable. Recent symptoms seem to be related to low blood sugar. DODIE negative. No further cardiac testing currently needed. Qualifiers: Coronary Disease-Associated Artery/Lesion type: [place] artery [place] vs. transplanted heart: [place] heart Associated angina: without angina Qualified Code(s): I25.10 - Atherosclerotic heart disease of [place] coronary artery without angina pectoris Discussion w patient/family: The assessment and plan as outlined above was discussed with the patient and/or family members who expressed understanding and agreement. All questions were answered. Thank you for involving us in the care of your patient. Please call with any questions. History of Present Illness Consult date: 06/20/18 Requesting physician: Elie Bowden Consult reason: Chest pain History of present illness: Mr. Kraft is a 62 year old male S/P recent CABG. He presented with an episode of sycope several days ago and chest pain yesterday. In both instances his blood sugar was 40 or less. Symptoms resolved after treating blood sugar. He has not had any further chest pain and DODIE negative. Past Med Surg Social Fam HX - Past Medical History Medical history: diabetes, GERD, hyperlipidemia, hypertension, other Additional medical history: CAD,depression, herniated disc neck c5-c6 and L5, removal of benign lesion of nose,excision of dermal melanocyctic proliferation on the nasal tip, hyperlipidemia, unknown food allergy, acromioclavicular joint arthritis, kat on cpap, servere sprain to left thumb. acromioclavicular joint arthritis. chest pain Psychiatric history: depression - Past Surgical History Surgical History: other Additional surgical history: bilateral knee replacement, left and right rotator cuff repair, - Social History Smoking Status: Never smoker Smokeless Tobacco Status: No Alcohol use: rarely Drug use: none Medications and Allergies Aspirin 81 mg PO DAILY 10/06/17 [History] Atorvastatin [Lipitor] 40 mg PO HS 10/06/17 [History] Dapagliflozin Propanediol [Farxiga] 5 mg PO DAILY 10/06/17 [History] Dulaglutide [Trulicity] 1.5 mg IJ WE 10/06/17 [History] Gabapentin [Neurontin] 300 mg PO QID 10/06/17 [History] Insulin ASPART [NovoLOG] 18 - 22 unit SQ TIDWM 10/06/17 [History] Losartan/Hydrochlorothiazide [Losartan-Hctz 100-12.5 mg Tab] 1 tab PO DAILY [History] Metformin HCl [Glucophage] 1,000 mg PO BIDWM 10/06/17 [History] Albuterol Sulfate [Proair Hfa] 2 puff IH Q4H PRN 05/18/18 [History] Fluticasone Propionate Nasal [Flonase] 50 mcg NS DAILY PRN 05/18/18 [History] Insulin Degludec [Tresiba Flextouch U-200] 120 unit SQ HS 05/18/18 [History] raNITIdine HCl [Zantac] 150 mg PO BID PRN 05/18/18 [History] Clopidogrel [Plavix] 75 mg PO DAILY 05/25/18 [History] Metoprolol [Lopressor] 12.5 mg PO BID 06/19/18 [History] 3 Allergy/AdvReac Type Severity Reaction Status Date / Time No Known Allergies Allergy Verified 06/19/18 10:44 All Systems Review: The remainder of the systems were reviewed and are negative Physical Examination Vital Signs, Last 4 Hours Temp Pulse Resp BP Pulse Ox 06/20/18 08:00 98.4 F 91 14 112/64 98 General: Conversant, No Apparent Distress HEENT: Atraumatic, Normocephaly, Mucus Membranes Moist Neck: No JVD, Normal carotid pulses Cardiac: Reg Rate and Rhythm, Normal S1 and S2, No Murmur Lungs: Normal Breath Sounds, No Wheeze, Rales, Rhonchi Neuro: Alert and responsive, No focal deficits noted Abdomen: Soft, Non-Tender Skin: No rashes noted on visualized skin Extremities: No Clubbing, No Cyanosis, No Edema, Normal Pulses Results 06/20/18 02:04 06/20/18 02:04 Lab Results 06/19/18 06/19/18 06/20/18 14:38 20:28 02:04 WBC Hgb Hct Plt Count Sodium Potassium Chloride Carbon Dioxide BUN Creatinine Glucose Calcium Troponin I < 0.03 < 0.03 < 0.03 06/20/18 06/20/18 02:04 02:04 WBC 8.5 Hgb 9.6 L Hct 30.3 L Plt Count 384 Sodium 135 L Potassium 3.9 Chloride 102 Carbon Dioxide 26 BUN 23 Creatinine 0.92 Glucose 203 H Calcium 8.7 Troponin I - EKG Interpretation EKG results cardiology: personally reviewed (No acute ST or T changes) Consult Discharge Plan - Plan Referrals: Garret Vitale MD [Primary Care Provider] -
[2018-06-20] MEDS: Aspirin 81 MG TAB.CHEW PO SCH (09:00)
[2018-06-20] MEDS: hydroCHLOROthiazide 25 MG TABLET PO SCH (09:00)
[2018-06-20] MEDS: Gabapentin 300 MG CAPSULE PO SCH ×4 (09:00→21:38)
--- NOTE | 2018-06-20 10:33 | Cardiothoracic Progress Note ---
Date of Encounter: 06/20/18 Time of Encounter: 10:31 - Subjective Procedure(s) Performed: Patient seen and examined. I was called yesterday when the patient was being transferred to the emergency room for a syncopal episode. I discussed the patient with the ER physician and was told his glucose was notably low and he likely had a hypoglycemic event. His cardiac workup has been negative for [place]. The patient had an uneventful evening. He is currently resting comfortably in bed without complaints of chest pain, shortness of breath and denies any recurrent syncopal events. I explained to the patient that he likely had a hypoglycemic event. His wounds appear clean and dry. His sternum is intact. We will be available to assist in management if needed. Appreciate assistance from hospitalist with patient care. Vital Signs, Last 4 Hours Temp Pulse Resp BP Pulse Ox 06/20/18 08:00 98.4 F 91 14 112/64 98 Oxgyen Flow Rate Oxygen Flow Rate (LPM) 0 Weight 06/18/18 06/19/18 06/20/18 23:59 23:59 23:59 Weight 128.7 kg 128.9 kg - Physical Examination Incision: No signs of infection, Open to air Sternum: Stable - Labs 06/20/18 02:04 06/20/18 02:04 Lab Results, Last 24 hours 06/19/18 06/19/18 06/20/18 14:38 20:28 02:04 WBC Hgb Hct Plt Count Sodium Potassium Chloride Carbon Dioxide BUN Creatinine Glucose Calcium Troponin I < 0.03 < 0.03 < 0.03 06/20/18 06/20/18 02:04 02:04 WBC 8.5 Hgb 9.6 L Hct 30.3 L Plt Count 384 Sodium 135 L Potassium 3.9 Chloride 102 Carbon Dioxide 26 BUN 23 Creatinine 0.92 Glucose 203 H Calcium 8.7 Troponin I Consult Discharge Plan - Plan Referrals: Garret Vitale MD [Primary Care Provider] -
--- NOTE | 2018-06-20 14:05 | Internal Med Progress Note ---
Hospitalist Progress Note - Encounter Date of Encounter: 06/20/18 Time of Encounter: 14:03 - Subjective Interval History: Patient seen and examined in the room, he denies syncope or fall. He has no chest pain, shortness breath, or palpitation. - Exam Vitals: Temp Pulse Resp BP Pulse Ox 98.4 F 83 14 107/74 99 06/20/18 08:00 06/20/18 11:53 06/20/18 11:53 06/20/18 11:53 06/20/18 11:53 - Assessment and Plan (1) Coronary artery disease Current Visit: No Status: Acute Assessment and Plan: Patient with recent CABG as above. EKG has no acute ST-T changes. Troponin negative X3. Cardiology and CT surgery both saw the patient, appreciate help. He has no signs or lab evidence of acute [place]. continue home medications (2) Hypoglycemia Current Visit: Yes Status: Acute Assessment and Plan: He was on three different oral DM meds + basal and sliding scale insulin. A1c 6.8 06/19. Pt reported loss of weight about 20-30 lb. Glucose on admission was 52. Home basal insulin was on hold and pt only on SSI. BG was controlled. continue monitoring BG, will adjust home basal insulin dose to avoid further hypoglycemic event. (3) Chest pain Current Visit: Yes Status: Acute Assessment and Plan: Patient with recent CABG 2 (GATES to LAD, SVG to OM2) on 05/25/18 pain resolved. No evidence of acute AL. (4) Syncope Current Visit: Yes Status: Acute Assessment and Plan: Suspect syncopal episode secondary to hypoglycemia as patient was found to have a glucose in the 40s Echocardiogram on 05/28/18 was technically suboptimal; will repeat (5) DVT prophylaxis Current Visit: Yes Status: Acute Assessment and Plan: Subcutaneous heparin - Time Spent with Patient Total time spent is greater than 50% in coordination of care (as documented) at patient's floor/unit and/or counseling patient: Greater than 35 minutes Plan of Care Discussed with: patient Internal Medicine: Result - Labs CBC & Chem 7: 06/20/18 02:04 06/20/18 02:04 Labs: Short CBC 06/20/18 Range/Units 02:04 WBC 8.5 (4.3-11.1) K/mcL Hgb 9.6 L (12.9-16.9) g/dL Hct 30.3 L (37.5-50.1) % Plt Count 384 (140-400) K/mcL Neutrophils # 5.7 (1.6-8.9) K/mcL BMP 06/20/18 02:04 Sodium 135 L Potassium 3.9 Chloride 102 Carbon Dioxide 26 BUN 23 Creatinine 0.92 Glucose 203 H Calcium 8.7 Cardiac Enzymes 06/19/18 06/19/18 06/20/18 Range/Units 14:38 20:28 02:04 Troponin I < 0.03 < 0.03 < 0.03 (< 0.04) ng/mL - ABG Interpretation ABG results: PT/INR, D-dimer PT 12.2 Seconds (9.4-12.1) H 06/19/18 10:06 Consult Discharge Plan - Plan Referrals: Garret Vitale MD [Primary Care Provider] - (1) Coronary artery disease Qualifiers: Coronary Disease-Associated Artery/Lesion type: [place] artery [place] vs. transplanted heart: [place] heart Associated angina: without angina Qualified Code(s): I25.10 - Atherosclerotic heart disease of [place] coronary artery without angina pectoris (3) Chest pain Qualifiers: Qualified Code(s): R07.9 - Chest pain, unspecified (4) Syncope Qualifiers: Qualified Code(s): R55 - Syncope and collapse
[2018-06-20] MEDS ORDERED: Acetaminophen 325 MG TABLET PO PRN (22:01)
[2018-06-21 04:00] LABS: Basophils # 0.1 K/mcL (0.0-0.2); Basophils % 0.7 %; Eosinophils # 0.8 K/mcL (0.0-0.6); Eosinophils % 8.8 %; Hematocrit 30.4 % (37.5-50.1); Hemoglobin 9.4 g/dL (12.9-16.9); Immature Granulocytes % 0.5 % (0-4); Lymphocytes # 2.1 K/mcL (0.6-4.6); Lymphocytes % 24.6 %; Mean Corpuscular HGB Conc 30.9 g/dL (31.6-35.5); Mean Corpuscular Hemoglobin 25.1 pg (28.0-33.3); Mean Corpuscular Volume 81.1 fL (83.0-100.0); Mean Platelet Volume 9.8 fL (9.4-12.4); Monocytes # 0.7 K/mcL (0.0-1.3); Neutrophils # 4.9 K/mcL (1.6-8.9); Platelet Count 372 K/mcL (140-400); Red Blood Count 3.75 M/mcL (4.19-5.50); Red Cell Distribution Width 14.3 % (11.5-14.5); Segmented Neutrophils % 57.4 %
[2018-06-21 04:17] LABS: BUN/Creatinine Ratio 22 (6-26); Blood Urea Nitrogen 22 mg/dL (8-23); Calcium 8.8 mg/dL (8.6-10.3); Carbon Dioxide 29 mEq/L (23-29); Chloride 104 mEq/L (98-107); Glucose 152 mg/dL (70-105); Osmolality,Calculated 292 (280-300); Sodium 138 mEq/L (136-145); eGFR For Non-African Americans > 60 (> 60)
[2018-06-21] MEDS: *HR* Heparin 5,000 UNIT/ML VIAL SQ SCH (05:17)
[2018-06-21 08:13] VITALS: BP 108/75
[2018-06-21] MEDS: Aspirin 81 MG TAB.CHEW PO SCH (08:37)
[2018-06-21] MEDS: hydroCHLOROthiazide 25 MG TABLET PO SCH (08:37)
[2018-06-21] MEDS: Gabapentin 300 MG CAPSULE PO SCH (08:38)
[2018-06-21] MEDS: Insulin LISPRO 300 UNITS/3 ML VIAL SQ SCH (08:43)
--- NOTE | 2018-06-21 09:34 | Electrocardiograph Report ---
[place] [id number] Test Date: 2018-06-19 Pat Name: Caleb Kraft Department: 104 Room: [facility] Gender: M Corporate Controller: ZOHRA : 1955 Requested By: Bina Sun Order Number: [id number] Reading MD: Jason Mckenzie Measurements Intervals [place] Rate: 91 P: 50 SC: 129 QRS: 43 QRSD: 92 T: 77 QT: 325 QTc: 374 Interpretive Statements SINUS RHYTHM NONSPECIFIC ST & T-WAVE ABNORMALITY Electronically Signed On 06-21-2018 9:33:15 EDT by Jason Mckenzie
--- NOTE | 2018-06-21 10:31 | Discharge Summary ---
- NOTES TO OUTPATIENT PROVIDER Notes to Outpatient Provider: f/u with PCP within a week. F/u with cardiothoracic surgery as scheduled. Date of Encounter: 06/21/18 Time of Encounter: 10:28 - Discharge Diagnosis (1) Coronary artery disease Priority: Secondary Status: Acute Assessment and Plan: Patient with recent CABG as above. EKG has no acute ST-T changes. Troponin negative X3. Cardiology and CT surgery both saw the patient, appreciate help. He has no signs or lab evidence of acute [place]. continue home medications. Qualifiers: Coronary Disease-Associated Artery/Lesion type: [place] artery [place] vs. transplanted heart: [place] heart Associated angina: without angina Qualified Code(s): I25.10 - Atherosclerotic heart disease of [place] coronary artery without angina pectoris (2) Hypoglycemia Priority: Primary Status: Acute Assessment and Plan: He was on three different oral DM meds + basal and sliding scale insulin. A1c 6.8 06/19. Pt reported loss of weight about 20-30 lb. Glucose on admission was 52. Home basal insulin was on hold and pt only on SSI. BG was controlled. we will restart metformin today and pt was instructed to continue check BG at home, f/u with PCP for further DM management. (3) Chest pain Priority: Primary Status: Acute Assessment and Plan: Patient with recent CABG 2 (GATES to LAD, SVG to OM2) on 05/25/18 pain resolved. No evidence of acute [place]. Qualifiers: Chest pain type: chest pain on breathing Qualified Code(s): R07.1 - Chest pain on breathing; R07.81 - Pleurodynia (4) Syncope Priority: Primary Status: Acute Assessment and Plan: Suspect syncopal episode secondary to hypoglycemia as patient was found to have a glucose in the 40s Echocardiogram on 05/28/18 was technically suboptimal; repeat ECHO showed normal EF, no other abnormalities. Qualifiers: Encounter type: initial encounter Qualified Code(s): T67.1XXA - Heat syncope, initial encounter (5) DVT prophylaxis Priority: Primary Status: Acute Hospital course: Patient is a 61-year-old male with past medical history significant for CABG 2 (GATES to LAD, SVG to OM2) on 05/25/18, hypertension, diabetes type 2 and hyperlipidemia who presents to the ER on 06/19/18 due to chest pain and syncopal episode. Patient reports that substernal chest pain woke him up this morning out of sleep which he described as heaviness without any provoking or relieving factors and without radiation. Patient also reports of a syncopal episode on 06/18 and was found on the floor by his granddaughter. Patient states his blood glucose was found to be in the 40s. He does report of recently with multiple episodes of hypoglycemia. In the ER, patients first set of cardiac biomarkers were negative. blood glucose of 52. Patient will be admitted for syncopal workup and ACS rule out. Inpatient workup showed normal troponin, normal EKG without acute ST-T change, echocardiogram with normal EF. Cardiology and cardiothoracic surgery were consulted. Patient chest pain is likely hypoglycemia related. Patient takes 3 different oral diabetic agent in addition to basal insulin at home. All his diabetic medication including insulin were on hold. BG was controlled with sliding scale insulin. Pt chest pain has resolved, he has no further syncopal episode. He will be discharged home today. He was instructed to continue to check blood sugar at least 3 times a day, continue to take metformin, continue to hold other diabetic medications including insulin, follow-up with PCP for further diabetic management. Follow up with cardiology/cardiothoracic surgeon for status post CABG care. Discharge discussed with: patient Time spent discussing smoking cessation with patient: 3 to 10 minutes - Time Spent with Patient Total time spent providing and/or coordinating discharge services: Greater than 30 minutes - Discharge Medications Home Medications: Aspirin 81 mg PO DAILY 10/06/17 [History] Atorvastatin [Lipitor] 40 mg PO HS 10/06/17 [History] Gabapentin [Neurontin] 300 mg PO QID 10/06/17 [History] Losartan/Hydrochlorothiazide [Losartan-Hctz 100-12.5 mg Tab] 1 tab PO DAILY [History] Metformin HCl [Glucophage] 1,000 mg PO BIDWM 10/06/17 [History] Albuterol Sulfate [Proair Hfa] 2 puff IH Q4H PRN 05/18/18 [History] Fluticasone Propionate Nasal [Flonase] 50 mcg NS DAILY PRN 05/18/18 [History] raNITIdine HCl [Zantac] 150 mg PO BID PRN 05/18/18 [History] Clopidogrel [Plavix] 75 mg PO DAILY 05/25/18 [History] Metoprolol [Lopressor] 12.5 mg PO BID 06/19/18 [History] Allergies/Adverse Reactions: 3 Allergy/AdvReac Type Severity Reaction Status Date / Time No Known Allergies Allergy Verified 06/19/18 10:44 Date of admission: 06/19/18 12:54 Primary care physician: Garret Vitale MD Consults: 06/19/18 13:54 Consult to Cardiology [CONS] Routine Comment: Consulting Provider: Cardiology Sadaf Reason for Consult: Chest pain Call Completed: Yes 06/19/18 14:21 Consult to Nutrition [CONS] Routine Comment: Consulting Provider: NUTRITION Reason for Dietary Consult: MST Score Anticipated date of discharge: 06/21/18 - Constitutional Vitals: Temp Pulse Resp BP Pulse Ox 97.9 F 97 17 108/75 98 06/21/18 05:00 06/21/18 08:07 06/21/18 08:07 06/21/18 08:07 06/21/18 08:07 General appearance: Present: A&O X 3, no acute distress Exam: PHYSICAL EXAMINATION: GENERAL APPEARANCE: The patient is alert, oriented and in no acute distress. HEENT: Head is normocephalic. The sinuses are nontender. Pupils are equal and reactive. The nares are patent. Oropharynx clear without lesions. NECK: Supple without lymphadenopathy. HEART: Regular rate and rhythm. LUNGS: No crackles or wheezes are heard. ABDOMEN: Soft, nontender, nondistended with good bowel sounds heard. Inguinal area is normal. EXTREMITIES: Without cyanosis, clubbing or edema. NEUROLOGICAL: Gross nonfocal. SKIN: Warm and dry without any rash. - Patient Status Disposition: Home, Self-Care Condition: Good Functional capacity at discharge: independent ambulation Overall status at discharge: patient is back to baseline - Discharge Instructions Instructions: Chest Pain (DC), Diabetic Hypoglycemia (GEN) Follow Up With: Garret Vitale MD [Primary Care Provider] - 06/28/18 10:00 am - Diet and Activity Activity: increase activity as tolerated Diet: diabetic diet, low fat, low cholesterol, low salt diet
[2018-06-21] MEDS ORDERED: *HR* Metformin 500 MG TABLET PO SCH (17:00)
== END 2018-06-21 13:04 | disposition home or self-care (01) ==
LOC: EMEROO 09:35 → 2NENU 09:35
PROVIDERS: ADMIT Hospitalist; ATTEND Hospitalist